=== PATIENT | female | born 1945 | race Caucasian/White ===

== ENCOUNTER 2021-07-25 17:44 | Inpatient (IN) ==
[2021-07-25 17:52] VITALS: BMI 28.3
--- NOTE | 2021-07-25 17:55 | DR.GENAD ---
HPI Time Seen Time Seen by Provider: 07/25/21 17:54 PCP Primary Care Physician: GURMEET SHIRLEY HPI Comment HPI Comment: PATIENT IS 75YR OLD FEMALE IN ER WITH GENERALIZED WEAKNESS AND CHEST PAIN TODAY AT 05:00AM. [facility] FOR SAME. PATIENT HAVE HAD DIARRHEA FOR 2 WEEKS THAT IS NOW RESOLVED. PATIENT IS HAVING DIFFICULTY STANDING UP. DENIES FEVER. HAVE SARCOIDOSIS AND ALWAYS HAVE COUGH. PATIENT IS HAVING 10/10 CHEST PAIN IN PRECORDIAL AREA RADIATING TO THE BACK, PATIENT IS ON ELIQUIS FO A FIB. DENIES TRAUMA. DENIES MELENA. Complaint/Symptoms Chief Complaint Doctors Comments: PRECORDIAL CHEST PAIN AND GENERALIZED WEAKNESS. Chief Complaint:: PT. C/O GENERALIZED WEAKNESS THAT HAS GOTTEN WORSE. PT. HAS HAD A STOMACH VIRUS FOR 2 WEEKS. PT. REPORTS TO ONLY HAVING DIARRHEA WHICH HAS NOW SUBSIDED. PT. C/O CHEST PAIN ESPECIALLY UPON DEEP INSPIRATION. PT. WAS SEEN IN THE [place] ER THIS MORNING FOR SAME C/O. PT. UNABLE TO STAND WITHOUT MAXIMUM ASSISTANCE. COVID-19 Coronavirus risk:travel/contact w/high risk person: No Has patient experienced Coronavirus symptoms: No Nurses notes reviewed Nurses Notes Review: Yes Source History Provided: Patient and Family Member Mode of Arrival Mode of Arrival: Wheelchair Timing Onset of Chief Complaint: 07/11/21 Came on: Suddenly Duration Duration: Constant Duration: Days Severity Severity: Moderate Modifying Factors Worsens:: EXERTION. Improves:: REST. Associated Signs and Symptoms Associated Signs and Symptoms: WEAKNESS. Other History Other History: A FIB, SARCOIDOSIS. PMH PMH Past Medical History: Yes Past Medical History Comment: A-FIB, SARCOIDOSIS Past Surgical History: Yes Surgical History: Cholecystectomy and Other Past Surgical History Comment: FACE LIFT Family History History of Family Medical Conditions: No Social History Does patient currently use any type of tobacco product: No Have you used tobacco products in the last 12 months: No Type of Tobacco Use: None Does any household member use tobacco: No Alcohol Use: None Do you use any recreational Drugs:: No Lives With: Other Lives Where: Home Travel Risk Coronavirus risk:travel/contact w/high risk person: No Has patient experienced Coronavirus symptoms: No Infectious screening In the last 2 months have you had wt loss of >10#?: NO Have you had fever, night sweats or hemotysis?: No Have you traveled outside the country in the last 6 months?: No Isolation: Droplet ROS Review of Systems Constitutional: See HPI, Weakness and Fatigue; negative Fever Eyes: No Symptoms Reported and See HPI ENTM: No Symptoms Reported and See HPI; negative Nose Discharge and Nose Congestion Respiratoy: See HPI, Non-Productive Cough and Short of Breath; negative Wheezing Cardiovascular: No Symptoms Reported, See HPI, Chest Pain and Edema Gastrointestinal/Abdominal: See HPI, Diarrhea and Nausea; negative Abdominal Pain and Vomiting Genitourinary: No Symptoms Reported and See HPI; negative Dysuria and Hematuria Neurological: No Symptoms Reported, See HPI, Headache and Weakness; negative Dizziness Musculoskeletal: See HPI and Back Pain Integumentary: No Symptoms Reported and See HPI; negative Change in Color, Rash and Juandice Hematologic/Lymphatic: No Symptoms Reported, Easy Bleeding and Easy Bruising Endocrine: No Symptoms Reported and See HPI; negative Increased Thirst and Inc reased Urine Psychiatric: No Symptoms Reported and See HPI All Other Systems: Reviewed and Negative PE Vital Signs Vitals: Temperature 98.4 F Pulse Rate 79 Respiratory Rate 20 Blood Pressure 116/56 O2 Sat by Pulse Oximetry 98 General Limitations: No Limitations General Appearance: Alert and In No Apparent Distress Head Head Exam: Normal Inspection Eyes Eye exam: Normal Appearance and PERRL; negative Scleral Icterus and Conjunctival Injection ENT ENT Exam: Normal Exam, Normal Oropharynx, Normal External Ear Exam and TM's Normal Bilaterally External Ear Exam: Normal External Inspection; negative Mastoid Tenderness TM/Canal Exam: Bilateral: Normal Nose Exam: Normal Nose Exam Mouth Exam: Normal Inspection; negative Lip Swelling and Tongue Swelling Throat Exam: Normal Inspection, Tonsillar Erythema and Tonsillomegaly Neck Neck Exam: Normal Inspection and Trachea Midline; negative Tenderness and Lymphadenopathy Chest Chest Inspection: Normal Inspection and Symmetric Chest Wall Rise; negative Tenderness Respiratory Respiratory Exam: Normal Lung Sounds Bilat; negative Accessory Muscle Use, Chest Wall Tenderness and Respiratory Distress Respiratory Exam: Bilateral: Clear to Auscultation Cardiovascular Cardiovascular Exam: Regular Rate, Normal Rhythm and Normal Heart Sounds; negative Systolic Murmur and Diastolic Murmur Abdominal Exam Abdominal Exam: Normal Inspection, Normal Bowel Sounds and Soft; negative Tenderness Extremities Extremities Exam: Normal Inspection, Tenderness and Normal Capillary Refill Back Back Exam: Normal Inspection Neurologic Neurological Exam: Alert and Oriented X3; negative Motor Sensory Deficit Psychiatric Psychiatric Exam: Normal Affect and Normal Mood Skin Skin Exam: Warm, Dry, Intact and Normal Color MDM Additional Information Additional Information Obtained From: Family Differential Diagnosis Differential Diagnosis: PNEUMONIA, [place], GENERALIZED WEAKNESS, UTI, DIARRHEA, DEHYDRATION. COURSE Treatment Treatment: SEE ORDERS. ASA 81MF , 4 TABS CHEWABLE TABS, NS 125MG IVPB, MORPHIN 4MG IV AND ZOFRAN 4MG IV. STILL NAUSEATED AND HAVING 9/10 PAIN. Consultation Consultation Comments: DISCUSSED PATIENT WITH DR. STREET. HE WILL ADMIT PATIENT. Education/Counseling Education/Counseling: Patient and Family Educated On: Diagnosis ROR Labs Reviewed Laboratory Results Reviewed?: Yes Result Diagrams: 07/25/21 16:46 07/25/21 16:46 Laboratory: WBC 10.1 X10^3/uL (3.6-10.0) H 07/25/21 16:46 RBC 4.16 X10^6/uL (3.5-5.4) 07/25/21 16:46 Hgb 11.9 g/dL (12.0-16.0) L 07/25/21 16:46 Hct 34.9 % (36.0-47.0) L 07/25/21 16:46 MCV 83.9 fL (80.0-100.0) 07/25/21 16:46 MCH 28.7 pg (27.0-34.0) 07/25/21 16:46 MCHC 34.2 g/dL (33.0-35.0) 07/25/21 16:46 RDW 15.8 % (11.6-16.5) 07/25/21 16:46 Plt Count 299 X10^3/uL (150.0-450.0) 07/25/21 16:46 MPV 7.9 fL (7.4-11.0) 07/25/21 16:46 Neut % (Auto) 83.2 % (42.0-75.0) H 07/25/21 16:46 Lymph % (Auto) 6.9 % (21.0-51.0) L 07/25/21 16:46 [place] % (Auto) 8.7 % (0.0-13.0) 07/25/21 16:46 Eos % (Auto) 0.0 % (0.9-2.9) L 07/25/21 16:46 Baso % (Auto) 1.2 % (0.2-1.0) H 07/25/21 16:46 Neut # (Auto) 8.4 x10^3/uL (2.2-4.8) H 07/25/21 16:46 Lymph # (Auto) 0.7 X10^3/uL (1.3-2.9) L 07/25/21 16:46 [place] # (Auto) 0.9 x10^3/uL (0.3-0.8) H 07/25/21 16:46 Eos # (Auto) 0.0 x10^3/uL (0.0-0.2) 07/25/21 16:46 Baso # (Auto) 0.1 X10^3/uL (0.0-0.1) 07/25/21 16:46 Absolute Nucleated RBC 0.1 /100WBC 07/25/21 16:46 Sodium 122 mmol/L (136-145) L* 07/25/21 16:46 Corrected Sodium 123 mmol/L (136-145) L 07/25/21 16:46 Potassium 4.4 mmol/L (3.5-5.1) 07/25/21 16:46 Chloride 89 mmol/L (98-107) L 07/25/21 16:46 Carbon Dioxide 25.6 mmol/L (21-32) 07/25/21 16:46 BUN 13 mg/dL (7-18) 07/25/21 16:46 Creatinine 0.96 mg/dL (0.55-1.02) 07/25/21 16:46 Est GFR (MDRD) Af Amer > 60 (>60) 07/25/21 16:46 Est GFR (MDRD) Non-Af 60 (>60) 07/25/21 16:46 Glucose 123 mg/dL (65-99) H 07/25/21 16:46 Calcium 8.9 mg/dL (8.5-10.1) 07/25/21 16:46 Corrected Calcium 9.9 mg/dL (8.5-10.1) 07/25/21 16:46 Total Bilirubin 0.60 mg/dL (0.2-1.0) 07/25/21 16:46 AST 124 Units/L (15-37) H 07/25/21 16:46 ALT 174 Units/L (12-78) H 07/25/21 16:46 Alkaline Phosphatase 166 Units/L (46-116) H 07/25/21 16:46 Creatine Kinase 16 Units/L (26-192) L 07/25/21 22:13 CK-MB (CK-2) < 1.0 ng/mL (0-4.0) 07/25/21 22:13 CK/CKMB % Calc 6.3 % (<4) 07/25/21 22:13 Troponin I < 0.02 ng/mL (0-1.5) 07/25/21 22:13 Total Protein 7.5 g/dL (6.4-8.2) 07/25/21 16:46 Albumin 2.7 g/dL (3.4-5.0) L 07/25/21 16:46 Globulin 4.8 g/dL (2.5-4.5) H 07/25/21 16:46 Albumin/Globulin Ratio 0.6 Ratio (1.1-2.1) L 07/25/21 16:46 Specimen Type Catherized urine 07/25/21 19:10 Urine Color Yellow (YELLOW) 07/25/21 19:10 Urine Appearance Cloudy (CLEAR) 07/25/21 19:10 Urine pH 6.0 (5.0 - 8.0) 07/25/21 19:10 Ur Specific [place] 1.020 (1.000-1.030) 07/25/21 19:10 Urine Protein 2+ (NEGATIVE) 07/25/21 19:10 Urine Glucose (UA) Negative (NEGATIVE) 07/25/21 19:10 Urine Ketones Negative (NEGATIVE) 07/25/21 19:10 Urine Occult Blood 3+ (NEGATIVE) 07/25/21 19:10 Urine Nitrite Negative (NEGATIVE) 07/25/21 19:10 Urine Bilirubin 1+ (NEGATIVE) 07/25/21 19:10 Urine Urobilinogen 1+ (NORMAL) 07/25/21 19:10 Ur Leukocyte Esterase 3+ (NEGATIVE) 07/25/21 19:10 Urine RBC 3-5 /HPF (0-3) A 07/25/21 19:10 Urine WBC Tntc /HPF (0-5) A 07/25/21 19:10 Ur Squamous Epith Cells Numerous /HPF (NEGATIVE) 07/25/21 19:10 Urine Bacteria 3+ /HPF (NEGATIVE) 07/25/21 19:10 Ur Culture Indicated? Yes/culture set up 07/25/21 19:10 SARS-CoV-2 (PCR) Negative (NEGATIVE) 07/25/21 18:29 Influenza Type A (PCR) Negative (NEGATIVE) 07/25/21 18:29 Influenza Type B (PCR) Negative (NEGATIVE) 07/25/21 18:29 RSV (PCR) Negative (NEGATIVE) 07/25/21 18:29 XRAY XRAY Interpreted by: Radiologist (REPORT NOTED AND DISCUSSED [facility] PATIENT AND DAUGHTER.) and Self Opioid Opioid Risk Tool Age (Nas box if 16-45): No History of Preadolescent Sexual Abuse: No Total: 0 Total Score Risk Category: Low Risk Copyright: Josesito GALAN predicting aberrant behaviors Diagnosis Discharge Problem: Acute hyponatremia, Generalized weakness Chest pain Qualifiers: Chest pain type: precordial pain Qualified Code(s): R07.2 - Precordial pain UTI (urinary tract infection) Qualifiers: Urinary tract infection type: site unspecified Hematuria presence: with hematuria Qualified Code(s): N39.0 - Urinary tract infection, site not specified Instructions Forms: Precautions for COVID19 [facility] Social Distancing
[2021-07-25 18:25] LABS: ALANINE AMINOTRANSFERASE 174 Units/L (12-78); ALBUMIN 2.7 g/dL (3.4-5.0); ALKALINE PHOSPHATASE 166 Units/L (46-116); ASPARTATE AMINO TRANSFERASE 124 Units/L (15-37); BLOOD UREA NITROGEN 13 mg/dL (7-18); CALCIUM 8.9 mg/dL (8.5-10.1); CARBON DIOXIDE 25.6 mmol/L (21-32); CHLORIDE 89 mmol/L (98-107); CKMB % 5.3 % (<4); COR CA(FOR HYPOALB) 9.9 mg/dL (8.5-10.1); COR NA(FOR HYPERGLY) 123 mmol/L (136-145); CREATINE KINASE 19 Units/L (26-192); CREATINE KINASE MB < 1.0 ng/mL (0-4.0); CREATININE 0.96 mg/dL (0.55-1.02); TOTAL PROTEIN 7.5 g/dL (6.4-8.2); TROPONIN I < 0.02 ng/mL (0-1.5); eGFR NON BLACK RACES 60 (>60)
[2021-07-25 18:26] LABS: BASOPHILS # (AUTO) 0.1 X10^3/uL (0.0-0.1); BASOPHILS % (AUTO) 1.2 % (0.2-1.0); HEMATOCRIT 34.9 % (36.0-47.0); HEMOGLOBIN 11.9 g/dL (12.0-16.0); LYMPHOCYTES # (AUTO) 0.7 X10^3/uL (1.3-2.9); LYMPHOCYTES % (AUTO) 6.9 % (21.0-51.0); MEAN CORPUSCULAR HEMOGLOBIN 28.7 pg (27.0-34.0); MEAN CORPUSCULAR HGB CONC 34.2 g/dL (33.0-35.0); MEAN CORPUSCULAR VOLUME 83.9 fL (80.0-100.0); MEAN PLATELET VOLUME 7.9 fL (7.4-11.0); MONOCYTES # (AUTO) 0.9 x10^3/uL (0.3-0.8); MONOCYTES % (AUTO) 8.7 % (0.0-13.0); NEUTROPHILS # (AUTO) 8.4 x10^3/uL (2.2-4.8); NEUTROPHILS % (AUTO) 83.2 % (42.0-75.0); PLATELET COUNT 299 X10^3/uL (150.0-450.0); RED BLOOD COUNT 4.16 X10^6/uL (3.5-5.4); RED CELL DISTRIBUTION WIDTH 15.8 % (11.6-16.5); SODIUM 122 mmol/L (136-145); WHITE BLOOD COUNT 10.1 X10^3/uL (3.6-10.0)
[2021-07-25 19:22] LABS: BILIRUBIN,URINE 1+ (NEGATIVE); BLOOD/HEMOGLOBIN,URINE 3+ (NEGATIVE); GLUCOSE, URINE NEGATIVE (NEGATIVE); KETONES,URINE NEGATIVE (NEGATIVE); LEUKOCYTE ESTERASE ,URINE 3+ (NEGATIVE); NITRITES,URINE NEGATIVE (NEGATIVE); PROTEIN,URINE 2+ (NEGATIVE); UROBILINOGEN,URINE 1+ (NORMAL)
[2021-07-25 19:33] LABS: APPEARANCE,URINE CLOUDY (CLEAR); COLOR,URINE YELLOW (YELLOW)
[2021-07-25 19:34] LABS: BACTERIA,URINE 3+ /HPF (NEGATIVE); SQUAMOUS EPITHELIAL CELL,UR NUMEROUS /HPF (NEGATIVE)
[2021-07-25] MEDS ORDERED: ZOFRAN INJ 4 MG VIAL IVP ONE ×2 (19:40→21:02)
[2021-07-25] MEDS ORDERED: MORPHINE SULFATE INJ 4 MG IVP ONE (19:40)
[2021-07-25] MEDS ORDERED: ASPIRIN 81 MG CHEWTAB PO ONE (19:41)
[2021-07-25] MEDS ORDERED: MORPHINE SULFATE INJ 4 MG ONE (20:28)
[2021-07-25] MEDS ORDERED: ASPIRIN 81 MG CHEWTAB ONE (20:28)
[2021-07-25] MEDS ORDERED: ZOFRAN INJ 4 MG VIAL ONE ×2 (20:29→21:08)
--- NOTE | 2021-07-25 20:39 | RAD ---
HISTORYPT. C/O GENERALIZED WEAKNESS THAT HAS GOTTEN WORSE. PT C/O CHEST PAINSTUDYCHEST, 1 VIEWCOMPARISONSeptember 2020 at 8:17 a.m.TECHNIQUEChest radiographic imaging, AP portable projection, 1 imageFINDINGSNo cardiomegaly.Bilateral peripheral hazy airspace opacities; left greater than right.Mild diffuse increased interstitial markings.Peribronchial cuffing in the hilar regions.No focal consolidation.No effusion.No pneumothorax.No acute osseous abnormality.IMPRESSIONFindings could represent the sequela of an atypical/viral infectious process. Chronic interstitial changes related to the patient's sarcoidosis or also a consideration. No focal consolidation. No significant interval changes.Electronically signed by: Blayne Durand (Jul 25, 2021 20:37:41)
[2021-07-25] MEDS ORDERED: DILAUDID INJ IVP ONE (21:02)
[2021-07-25] MEDS ORDERED: DILAUDID INJ ONE (21:08)
[2021-07-25 22:43] LABS: CKMB % 6.3 % (<4); CREATINE KINASE 16 Units/L (26-192); CREATINE KINASE MB < 1.0 ng/mL (0-4.0); TROPONIN I < 0.02 ng/mL (0-1.5)
[2021-07-25] MEDS ORDERED: NS 1000 ML 1,000 ML ONE (23:01)
[2021-07-25] MEDS: NS 1000 ML 1,000 ML IV SCH (23:07)
[2021-07-26] MEDS ORDERED: MORPHINE SULFATE INJ 2 MG INJ ONE (02:08)
[2021-07-26] MEDS ORDERED: MIRALAX POWDER (255 GRAMS BTL) PO PRN (02:12)
[2021-07-26] MEDS: MORPHINE SULFATE INJ 2 MG INJ IVP PRN ×4 (02:12→20:57)
[2021-07-26] MEDS ORDERED: ROCEPHIN 1 GRAM IV PREMIX 1 G/50 ML IV.SOLN. IV SCH (04:13)
[2021-07-26] MEDS: REQUIP PO SCH ×3 (05:20→21:20)
[2021-07-26] MEDS: ROCEPHIN 1 GRAM IV PREMIX 1 G/50 ML IV.SOLN. IV SCH (05:20)
[2021-07-26] MEDS: MYSOLINE TAB 250 MG PO SCH ×3 (05:33→21:19)
[2021-07-26 07:36] LABS: BASOPHILS % (AUTO) 0.4 % (0.2-1.0); EOSINOPHILS % (AUTO) 0.3 % (0.9-2.9); HEMATOCRIT 32.5 % (36.0-47.0); LYMPHOCYTES # (AUTO) 0.7 X10^3/uL (1.3-2.9); LYMPHOCYTES % (AUTO) 9.4 % (21.0-51.0); MEAN CORPUSCULAR HEMOGLOBIN 28.9 pg (27.0-34.0); MEAN CORPUSCULAR HGB CONC 33.9 g/dL (33.0-35.0); MEAN CORPUSCULAR VOLUME 85.2 fL (80.0-100.0); MEAN PLATELET VOLUME 7.9 fL (7.4-11.0); MONOCYTES # (AUTO) 0.8 x10^3/uL (0.3-0.8); MONOCYTES % (AUTO) 11.7 % (0.0-13.0); NEUTROPHILS # (AUTO) 5.5 x10^3/uL (2.2-4.8); NEUTROPHILS % (AUTO) 78.2 % (42.0-75.0); PLATELET COUNT 257 X10^3/uL (150.0-450.0); RED BLOOD COUNT 3.81 X10^6/uL (3.5-5.4); RED CELL DISTRIBUTION WIDTH 15.6 % (11.6-16.5)
[2021-07-26 08:08] LABS: ALANINE AMINOTRANSFERASE 249 Units/L (12-78); ALBUMIN 2.3 g/dL (3.4-5.0); ALKALINE PHOSPHATASE 288 Units/L (46-116); ASPARTATE AMINO TRANSFERASE 211 Units/L (15-37); BLOOD UREA NITROGEN 10 mg/dL (7-18); CALCIUM 8.6 mg/dL (8.5-10.1); CARBON DIOXIDE 27.1 mmol/L (21-32); CHLORIDE 93 mmol/L (98-107); COR NA(FOR HYPERGLY) 125 mmol/L (136-145); CREATINE KINASE 25 Units/L (26-192); CREATINE KINASE MB < 1.0 ng/mL (0-4.0); CREATININE 0.66 mg/dL (0.55-1.02); MAGNESIUM 1.8 mg/dL (1.7-2.9); TOTAL PROTEIN 6.8 g/dL (6.4-8.2); TROPONIN I < 0.02 ng/mL (0-1.5); eGFR NON BLACK RACES > 60 (>60)
[2021-07-26 08:17] LABS: SODIUM 125 mmol/L (136-145)
[2021-07-26] MEDS: NS 1000 ML 1,000 ML IV SCH ×3 (08:32→16:26)
[2021-07-26] MEDS: CORDARONE TAB 200 MG PO SCH (08:32)
[2021-07-26] MEDS: XANAX PO SCH ×2 (08:33→20:39)
[2021-07-26] MEDS: PROTONIX TAB 40 MG PO SCH (08:33)
[2021-07-26] MEDS: ELIQUIS PO SCH ×2 (08:33→20:38)
[2021-07-26] MEDS: PROzac PO SCH (08:33)
[2021-07-26] MEDS ORDERED: SENNA PO SCH (09:00)
[2021-07-26] MEDS ORDERED: [UNRECOGNIZED DRUG - OTHER] PO SCH (09:00)
[2021-07-26] MEDS ORDERED: PATIENT'S HOME MEDICATION (Multivitamin Tablet) PO SCH (09:00)
[2021-07-26] MEDS ORDERED: PROzac PO SCH (09:00)
[2021-07-26] MEDS: ACTOS PO SCH (09:13)
[2021-07-26] MEDS: TAB-A-VITE PO SCH (09:14)
[2021-07-26] MEDS: VITAMIN D3 125 mcg (5,000 UNITS) PO SCH (11:57)
[2021-07-26] MEDS: ESTRACE PO SCH (11:57)
[2021-07-26] MEDS: MICRO K EXTEN CAP 10 MEQ PO SCH (11:57)
[2021-07-26] MEDS ORDERED: LASIX PO SCH (12:00)
[2021-07-26] MEDS ORDERED: ESTRADIOL 0.5 MG PO SCH (12:00)
[2021-07-26 12:04] LABS: CREATINE KINASE 20 Units/L (26-192); CREATINE KINASE MB < 1.0 ng/mL (0-4.0); TROPONIN I < 0.02 ng/mL (0-1.5)
[2021-07-26 13:09] LABS: BILIRUBIN,URINE NEGATIVE (NEGATIVE); BLOOD/HEMOGLOBIN,URINE 4+ (NEGATIVE); GLUCOSE, URINE NEGATIVE (NEGATIVE); KETONES,URINE NEGATIVE (NEGATIVE); LEUKOCYTE ESTERASE ,URINE 3+ (NEGATIVE); NITRITES,URINE NEGATIVE (NEGATIVE); PH,URINE 6.5 (5.0 - 8.0); PROTEIN,URINE 1+ (NEGATIVE); UROBILINOGEN,URINE NORMAL (NORMAL)
[2021-07-26] MEDS: ZOFRAN INJ 4 MG VIAL IVP PRN (13:14)
[2021-07-26 13:24] LABS: APPEARANCE,URINE CLEAR (CLEAR); COLOR,URINE YELLOW (YELLOW)
[2021-07-26 13:25] LABS: BACTERIA,URINE TRACE /HPF (NEGATIVE); SQUAMOUS EPITHELIAL CELL,UR FEW /HPF (NEGATIVE)
--- NOTE | 2021-07-26 14:27 | US ---
HISTORYELEV TRANSAMINASESAbdominal pain and abnormal LFTs.Exams: Diagnostic ultrasound exam of the liver.Technique: GRAYSCALE & DOPPLER IMAGES OF THE LIVER PERFORMED.COMPARISON: None available.Findings:The liver is normal in size and heterogeneously echogenic in echotecture. The liver measures 16 cm in greatest cross-sectional dimension. [No dominant or hypoechoic liver mass lesions are appreciated]. The gallbladder is surgically absent. [No pathologic intrahepatic biliary duct dilatation is seen]. The common bile duct measures within normal limits for age at 2 mm. There is no surrounding ascites observed.Impression:Liver is normal in size & heterogeneously echogenic/fatty in echotecture.No dominant liver mass lesions or biliary duct dilatation seen.Status post cholecystectomy. No other abnormalities appreciated.Electronically signed by: CRISTINA MCLAUGHLIN III (Jul 26, 2021 14:25:46)
[2021-07-26] MEDS ORDERED: CARDIZEM CD 120 MG 24-HR PO ONE ×2 (20:24→21:00)
[2021-07-26] MEDS: LIPITOR TAB 20 MG PO SCH (20:39)
[2021-07-26] MEDS: MELATONIN PO SCH (20:55)
[2021-07-26] MEDS: DIOVAN TAB 80 MG PO SCH (20:55)
[2021-07-26] MEDS ORDERED: PATIENT'S HOME MEDICATION (Melatonin 10 mg Tablet) PO SCH (21:00)
[2021-07-26] MEDS ORDERED: HYDROCHLOROTHIAZIDE 12.5 MG CAP PO SCH (21:00)
[2021-07-26] MEDS ORDERED: CARDIZEM CD 120 MG 24-HR PO SCH (21:00)
[2021-07-26] MEDS ORDERED: VALSARTAN HYDROCHLOROTHIAZIDE PO SCH (21:00)
[2021-07-26] MEDS ORDERED: CARDIZEM CD 180 MG 24-HR PO SCH (21:00)
[2021-07-26] MEDS ORDERED: DILTIAZEM HCL 180 MG PO SCH (21:00)
[2021-07-27] MEDS: NS 1000 ML 1,000 ML IV SCH ×4 (00:46→16:55)
[2021-07-27] MEDS: MYSOLINE TAB 250 MG PO SCH ×3 (05:38→21:11)
[2021-07-27] MEDS: REQUIP PO SCH ×3 (05:39→21:11)
[2021-07-27 06:48] LABS: BASOPHILS % (AUTO) 0.3 % (0.2-1.0); EOSINOPHILS # (AUTO) 0.1 x10^3/uL (0.0-0.2); EOSINOPHILS % (AUTO) 0.9 % (0.9-2.9); HEMATOCRIT 29.8 % (36.0-47.0); HEMOGLOBIN 10.1 g/dL (12.0-16.0); LYMPHOCYTES # (AUTO) 0.7 X10^3/uL (1.3-2.9); LYMPHOCYTES % (AUTO) 11.7 % (21.0-51.0); MEAN CORPUSCULAR HEMOGLOBIN 28.9 pg (27.0-34.0); MEAN CORPUSCULAR HGB CONC 33.8 g/dL (33.0-35.0); MEAN CORPUSCULAR VOLUME 85.5 fL (80.0-100.0); MEAN PLATELET VOLUME 8.2 fL (7.4-11.0); MONOCYTES # (AUTO) 0.6 x10^3/uL (0.3-0.8); MONOCYTES % (AUTO) 11.6 % (0.0-13.0); NEUTROPHILS # (AUTO) 4.2 x10^3/uL (2.2-4.8); NEUTROPHILS % (AUTO) 75.5 % (42.0-75.0); PLATELET COUNT 257 X10^3/uL (150.0-450.0); RED BLOOD COUNT 3.49 X10^6/uL (3.5-5.4); RED CELL DISTRIBUTION WIDTH 15.8 % (11.6-16.5); WHITE BLOOD COUNT 5.6 X10^3/uL (3.6-10.0)
[2021-07-27 07:01] LABS: HEMOGLOBIN A1C 5.1 %
[2021-07-27 07:09] LABS: ALANINE AMINOTRANSFERASE 248 Units/L (12-78); ALBUMIN 2.1 g/dL (3.4-5.0); ALKALINE PHOSPHATASE 229 Units/L (46-116); ASPARTATE AMINO TRANSFERASE 200 Units/L (15-37); BLOOD UREA NITROGEN 9 mg/dL (7-18); CALCIUM 8.3 mg/dL (8.5-10.1); CARBON DIOXIDE 25.8 mmol/L (21-32); CHLORIDE 100 mmol/L (98-107); CHOLESTEROL 164 mg/dL (0-200); COR CA(FOR HYPOALB) 9.8 mg/dL (8.5-10.1); CREATININE 0.71 mg/dL (0.55-1.02); HDL CHOLESTEROL 81 mg/dL (40-60); MAGNESIUM 1.9 mg/dL (1.7-2.9); SODIUM 131 mmol/L (136-145); TOTAL PROTEIN 6.3 g/dL (6.4-8.2); TRIGLYCERIDES 51 mg/dL (0-150); eGFR NON BLACK RACES > 60 (>60)
[2021-07-27] MEDS: PROzac PO SCH (08:54)
[2021-07-27] MEDS: ROCEPHIN 1 GRAM IV PREMIX 1 G/50 ML IV.SOLN. IV SCH (08:54)
[2021-07-27] MEDS: ACTOS PO SCH (08:54)
[2021-07-27] MEDS: ELIQUIS PO SCH ×2 (08:54→20:30)
[2021-07-27] MEDS: PROTONIX TAB 40 MG PO SCH (08:54)
[2021-07-27] MEDS: CORDARONE TAB 200 MG PO SCH (08:54)
[2021-07-27] MEDS: XANAX PO SCH ×2 (08:55→20:30)
[2021-07-27] MEDS: TAB-A-VITE PO SCH (08:55)
[2021-07-27] MEDS ORDERED: CARDIZEM CD 120 MG 24-HR PO SCH (09:00)
[2021-07-27] MEDS: MORPHINE SULFATE INJ 2 MG INJ IVP PRN ×3 (09:04→21:13)
[2021-07-27] MEDS: MICRO K EXTEN CAP 10 MEQ PO SCH (11:34)
[2021-07-27] MEDS: VITAMIN D3 125 mcg (5,000 UNITS) PO SCH (11:34)
[2021-07-27] MEDS: ESTRACE PO SCH (11:34)
[2021-07-27] MEDS: MELATONIN PO SCH (20:29)
[2021-07-27] MEDS: LIPITOR TAB 20 MG PO SCH (20:30)
[2021-07-27] MEDS: DIOVAN TAB 80 MG PO SCH (20:30)
[2021-07-27] MEDS ORDERED: COLACE CAP 100 MG PO PRN (22:00)
[2021-07-27] MEDS: CARDIZEM CD 180 MG 24-HR PO SCH (22:00)
[2021-07-27] MEDS ORDERED: COLACE CAP 100 MG PO ONE (23:00)
[2021-07-28] MEDS: NS 1000 ML 1,000 ML IV SCH ×4 (00:07→21:10)
[2021-07-28] MEDS: MORPHINE SULFATE INJ 2 MG INJ IVP PRN ×5 (00:50→21:10)
[2021-07-28] MEDS ORDERED: MORPHINE SULFATE INJ 2 MG INJ ONE ×2 (05:19→13:20)
[2021-07-28] MEDS: MYSOLINE TAB 250 MG PO SCH ×3 (05:44→22:05)
[2021-07-28] MEDS: REQUIP PO SCH ×3 (05:44→22:05)
[2021-07-28 06:15] LABS: BASOPHILS % (AUTO) 0.6 % (0.2-1.0); EOSINOPHILS # (AUTO) 0.1 x10^3/uL (0.0-0.2); EOSINOPHILS % (AUTO) 1.8 % (0.9-2.9); HEMATOCRIT 28.3 % (36.0-47.0); HEMOGLOBIN 9.6 g/dL (12.0-16.0); LYMPHOCYTES # (AUTO) 0.7 X10^3/uL (1.3-2.9); LYMPHOCYTES % (AUTO) 12.8 % (21.0-51.0); MEAN CORPUSCULAR HEMOGLOBIN 28.7 pg (27.0-34.0); MEAN CORPUSCULAR HGB CONC 33.8 g/dL (33.0-35.0); MEAN CORPUSCULAR VOLUME 84.9 fL (80.0-100.0); MONOCYTES # (AUTO) 0.6 x10^3/uL (0.3-0.8); MONOCYTES % (AUTO) 11.2 % (0.0-13.0); NEUTROPHILS # (AUTO) 4.3 x10^3/uL (2.2-4.8); NEUTROPHILS % (AUTO) 73.6 % (42.0-75.0); PLATELET COUNT 247 X10^3/uL (150.0-450.0); RED BLOOD COUNT 3.33 X10^6/uL (3.5-5.4); RED CELL DISTRIBUTION WIDTH 15.6 % (11.6-16.5); WHITE BLOOD COUNT 5.8 X10^3/uL (3.6-10.0)
[2021-07-28 06:43] LABS: ALANINE AMINOTRANSFERASE 192 Units/L (12-78); ALBUMIN 1.9 g/dL (3.4-5.0); ALKALINE PHOSPHATASE 187 Units/L (46-116); ASPARTATE AMINO TRANSFERASE 142 Units/L (15-37); BLOOD UREA NITROGEN 6 mg/dL (7-18); CALCIUM 8.1 mg/dL (8.5-10.1); CARBON DIOXIDE 25.1 mmol/L (21-32); CHLORIDE 100 mmol/L (98-107); COR CA(FOR HYPOALB) 9.8 mg/dL (8.5-10.1); CREATININE 0.59 mg/dL (0.55-1.02); SODIUM 133 mmol/L (136-145); TOTAL PROTEIN 5.7 g/dL (6.4-8.2); eGFR NON BLACK RACES > 60 (>60)
[2021-07-28] MEDS: ELIQUIS PO SCH ×2 (08:38→21:55)
[2021-07-28] MEDS: PROTONIX TAB 40 MG PO SCH (08:39)
[2021-07-28] MEDS: ROCEPHIN 1 GRAM IV PREMIX 1 G/50 ML IV.SOLN. IV SCH (08:39)
[2021-07-28] MEDS: TAB-A-VITE PO SCH (08:39)
[2021-07-28] MEDS: PROzac PO SCH (08:39)
[2021-07-28] MEDS: XANAX PO SCH ×2 (08:39→21:55)
[2021-07-28] MEDS: CORDARONE TAB 200 MG PO SCH (08:41)
[2021-07-28] MEDS ORDERED: TYGACIL 50 MG VIAL 100 MG in NS 100 ML IV 100 ML IV ONE (09:41)
[2021-07-28] MEDS ORDERED: TYGACIL 50 MG VIAL 50 MG in NS 100 ML IV 100 ML IV SCH (11:00)
[2021-07-28] MEDS ORDERED: NS 100 ML IV 100 ML ONE (11:05)
[2021-07-28] MEDS: ACTOS PO SCH (11:39)
[2021-07-28] MEDS: MICRO K EXTEN CAP 10 MEQ PO SCH (11:39)
[2021-07-28] MEDS: ESTRACE PO SCH (11:39)
[2021-07-28] MEDS: VITAMIN D3 125 mcg (5,000 UNITS) PO SCH (11:40)
[2021-07-28] MEDS ORDERED: TYGACIL 50 MG VIAL 100 MG in NS 100 ML IV 100 ML IV NR (12:00)
[2021-07-28] MEDS ORDERED: XANAX PO ONE (15:55)
[2021-07-28] MEDS: ZOFRAN INJ 4 MG VIAL IVP PRN (18:32)
[2021-07-28] MEDS: LIPITOR TAB 20 MG PO SCH (21:55)
[2021-07-28] MEDS: TYGACIL 50 MG VIAL 50 MG in NS 100 ML IV 100 ML IV SCH (21:55)
[2021-07-28] MEDS: MELATONIN PO SCH (21:55)
[2021-07-28] MEDS: DIOVAN TAB 80 MG PO SCH (21:55)
[2021-07-28] MEDS: CARDIZEM CD 180 MG 24-HR PO SCH (21:55)
[2021-07-29] MEDS: MORPHINE SULFATE INJ 2 MG INJ IVP PRN ×3 (03:45→21:01)
[2021-07-29] MEDS: NS 1000 ML 1,000 ML IV SCH ×3 (03:54→18:28)
[2021-07-29] MEDS: MYSOLINE TAB 250 MG PO SCH ×3 (05:45→20:59)
[2021-07-29] MEDS: REQUIP PO SCH ×3 (05:45→20:59)
[2021-07-29 06:14] LABS: BASOPHILS % (AUTO) 0.5 % (0.2-1.0); EOSINOPHILS % (AUTO) 0.8 % (0.9-2.9); HEMOGLOBIN 10.2 g/dL (12.0-16.0); LYMPHOCYTES # (AUTO) 0.8 X10^3/uL (1.3-2.9); LYMPHOCYTES % (AUTO) 12.2 % (21.0-51.0); MEAN CORPUSCULAR HEMOGLOBIN 28.7 pg (27.0-34.0); MEAN CORPUSCULAR VOLUME 84.4 fL (80.0-100.0); MONOCYTES # (AUTO) 0.6 x10^3/uL (0.3-0.8); MONOCYTES % (AUTO) 9.1 % (0.0-13.0); NEUTROPHILS # (AUTO) 4.9 x10^3/uL (2.2-4.8); NEUTROPHILS % (AUTO) 77.4 % (42.0-75.0); PLATELET COUNT 259 X10^3/uL (150.0-450.0); RED BLOOD COUNT 3.55 X10^6/uL (3.5-5.4); RED CELL DISTRIBUTION WIDTH 15.3 % (11.6-16.5); WHITE BLOOD COUNT 6.4 X10^3/uL (3.6-10.0)
[2021-07-29 06:32] LABS: ALANINE AMINOTRANSFERASE 235 Units/L (12-78); ALBUMIN 1.8 g/dL (3.4-5.0); ALKALINE PHOSPHATASE 173 Units/L (46-116); ASPARTATE AMINO TRANSFERASE 182 Units/L (15-37); BLOOD UREA NITROGEN 13 mg/dL (7-18); CARBON DIOXIDE 28.3 mmol/L (21-32); CHLORIDE 99 mmol/L (98-107); COR CA(FOR HYPOALB) 9.8 mg/dL (8.5-10.1); CREATININE 0.65 mg/dL (0.55-1.02); SODIUM 133 mmol/L (136-145); TOTAL PROTEIN 5.7 g/dL (6.4-8.2); eGFR NON BLACK RACES > 60 (>60)
[2021-07-29] MEDS ORDERED: SODIUM CHL HYPERTONIC 3% IV ONE (09:00)
[2021-07-29] MEDS: ELIQUIS PO SCH ×2 (10:01→21:00)
[2021-07-29] MEDS: ACTOS PO SCH (10:02)
[2021-07-29] MEDS: XANAX PO SCH ×2 (10:02→21:01)
[2021-07-29] MEDS: CORDARONE TAB 200 MG PO SCH (10:03)
[2021-07-29] MEDS: TYGACIL 50 MG VIAL 50 MG in NS 100 ML IV 100 ML IV SCH ×2 (10:04→21:01)
[2021-07-29] MEDS: PROTONIX TAB 40 MG PO SCH (10:04)
[2021-07-29] MEDS: TAB-A-VITE PO SCH (10:04)
[2021-07-29] MEDS: PROzac PO SCH (10:09)
[2021-07-29 12:46] LABS: BLOOD UREA NITROGEN 13 mg/dL (7-18); CARBON DIOXIDE 26.7 mmol/L (21-32); CHLORIDE 98 mmol/L (98-107); COR NA(FOR HYPERGLY) 133 mmol/L (136-145); CREATININE 0.58 mg/dL (0.55-1.02); SODIUM 133 mmol/L (136-145); eGFR NON BLACK RACES > 60 (>60)
[2021-07-29] MEDS: MICRO K EXTEN CAP 10 MEQ PO SCH (14:09)
[2021-07-29] MEDS: VITAMIN D3 125 mcg (5,000 UNITS) PO SCH (14:09)
[2021-07-29] MEDS: ESTRACE PO SCH (14:10)
[2021-07-29] MEDS ORDERED: SODIUM CHL HYPERTONIC 3% IV NR (15:00)
[2021-07-29 16:58] LABS: BLOOD UREA NITROGEN 14 mg/dL (7-18); CARBON DIOXIDE 31.7 mmol/L (21-32); CHLORIDE 99 mmol/L (98-107); CREATININE 0.74 mg/dL (0.55-1.02); SODIUM 133 mmol/L (136-145); eGFR NON BLACK RACES > 60 (>60)
[2021-07-29] MEDS ORDERED: SODIUM CHL HYPERTONIC ** 3% ** 500 ML IV NR (20:00)
[2021-07-29] MEDS: LIPITOR TAB 20 MG PO SCH (20:58)
[2021-07-29] MEDS: MELATONIN PO SCH (20:58)
[2021-07-29] MEDS: CARDIZEM CD 180 MG 24-HR PO SCH (21:00)
[2021-07-29] MEDS: DIOVAN TAB 80 MG PO SCH (21:00)
[2021-07-30] MEDS: MYSOLINE TAB 250 MG PO SCH ×3 (05:28→21:30)
[2021-07-30] MEDS: REQUIP PO SCH ×3 (05:29→21:30)
[2021-07-30] MEDS: NS 1000 ML 1,000 ML IV SCH ×3 (06:45→22:00)
[2021-07-30 06:48] LABS: BASOPHILS % (AUTO) 0.6 % (0.2-1.0); EOSINOPHILS # (AUTO) 0.1 x10^3/uL (0.0-0.2); EOSINOPHILS % (AUTO) 2.2 % (0.9-2.9); HEMOGLOBIN 10.6 g/dL (12.0-16.0); LYMPHOCYTES # (AUTO) 0.8 X10^3/uL (1.3-2.9); MEAN CORPUSCULAR HEMOGLOBIN 28.7 pg (27.0-34.0); MEAN CORPUSCULAR HGB CONC 34.2 g/dL (33.0-35.0); MEAN CORPUSCULAR VOLUME 83.9 fL (80.0-100.0); MEAN PLATELET VOLUME 7.9 fL (7.4-11.0); MONOCYTES # (AUTO) 0.6 x10^3/uL (0.3-0.8); NEUTROPHILS # (AUTO) 4.7 x10^3/uL (2.2-4.8); NEUTROPHILS % (AUTO) 74.2 % (42.0-75.0); PLATELET COUNT 264 X10^3/uL (150.0-450.0); RED CELL DISTRIBUTION WIDTH 15.6 % (11.6-16.5); WHITE BLOOD COUNT 6.3 X10^3/uL (3.6-10.0)
[2021-07-30 06:57] LABS: ALANINE AMINOTRANSFERASE 293 Units/L (12-78); ALKALINE PHOSPHATASE 170 Units/L (46-116); ASPARTATE AMINO TRANSFERASE 216 Units/L (15-37); BLOOD UREA NITROGEN 13 mg/dL (7-18); CALCIUM 8.2 mg/dL (8.5-10.1); CARBON DIOXIDE 28.1 mmol/L (21-32); CHLORIDE 99 mmol/L (98-107); COR CA(FOR HYPOALB) 9.8 mg/dL (8.5-10.1); CREATININE 0.64 mg/dL (0.55-1.02); SODIUM 132 mmol/L (136-145); TOTAL PROTEIN 5.8 g/dL (6.4-8.2); eGFR NON BLACK RACES > 60 (>60)
[2021-07-30] MEDS ORDERED: PROzac PO SCH (09:01)
[2021-07-30] MEDS: ACTOS PO SCH (09:11)
[2021-07-30] MEDS: ELIQUIS PO SCH ×2 (09:11→20:36)
[2021-07-30] MEDS: XANAX PO SCH ×2 (09:12→20:36)
[2021-07-30] MEDS: TAB-A-VITE PO SCH (09:12)
[2021-07-30] MEDS: TYGACIL 50 MG VIAL 50 MG in NS 100 ML IV 100 ML IV SCH ×2 (09:12→20:36)
[2021-07-30] MEDS: CORDARONE TAB 200 MG PO SCH (09:13)
[2021-07-30] MEDS: PROTONIX TAB 40 MG PO SCH (10:02)
[2021-07-30] MEDS: SODIUM CHL HYPERTONIC 3% IV SCH ×5 (10:30→22:15)
[2021-07-30] MEDS: ESTRACE PO SCH (13:13)
[2021-07-30] MEDS: VITAMIN D3 125 mcg (5,000 UNITS) PO SCH (13:14)
[2021-07-30] MEDS: MICRO K EXTEN CAP 10 MEQ PO SCH (13:14)
[2021-07-30] MEDS: MORPHINE SULFATE INJ 2 MG INJ IVP PRN (20:05)
[2021-07-30] MEDS: DIOVAN TAB 80 MG PO SCH (20:35)
[2021-07-30] MEDS: CARDIZEM CD 180 MG 24-HR PO SCH (20:35)
[2021-07-30] MEDS: LIPITOR TAB 20 MG PO SCH (20:36)
[2021-07-30] MEDS: MELATONIN PO SCH (20:36)
[2021-07-31] MEDS: SODIUM CHL HYPERTONIC 3% IV SCH ×3 (00:05→19:17)
[2021-07-31] MEDS: MORPHINE SULFATE INJ 2 MG INJ IVP PRN ×4 (00:40→21:12)
[2021-07-31] MEDS: MYSOLINE TAB 250 MG PO SCH ×3 (05:02→21:08)
[2021-07-31] MEDS: REQUIP PO SCH ×3 (05:02→21:08)
[2021-07-31 06:10] LABS: EOSINOPHILS # (AUTO) 0.1 x10^3/uL (0.0-0.2); EOSINOPHILS % (AUTO) 2.6 % (0.9-2.9); HEMATOCRIT 29.5 % (36.0-47.0); HEMOGLOBIN 10.1 g/dL (12.0-16.0); LYMPHOCYTES # (AUTO) 0.7 X10^3/uL (1.3-2.9); LYMPHOCYTES % (AUTO) 15.7 % (21.0-51.0); MEAN CORPUSCULAR HEMOGLOBIN 28.7 pg (27.0-34.0); MEAN CORPUSCULAR HGB CONC 34.2 g/dL (33.0-35.0); MEAN CORPUSCULAR VOLUME 84.1 fL (80.0-100.0); MEAN PLATELET VOLUME 8.2 fL (7.4-11.0); MONOCYTES # (AUTO) 0.6 x10^3/uL (0.3-0.8); NEUTROPHILS # (AUTO) 3.2 x10^3/uL (2.2-4.8); NEUTROPHILS % (AUTO) 67.7 % (42.0-75.0); PLATELET COUNT 246 X10^3/uL (150.0-450.0); RED CELL DISTRIBUTION WIDTH 15.6 % (11.6-16.5); WHITE BLOOD COUNT 4.7 X10^3/uL (3.6-10.0)
[2021-07-31 06:26] LABS: ALANINE AMINOTRANSFERASE 229 Units/L (12-78); ALBUMIN 1.8 g/dL (3.4-5.0); ALKALINE PHOSPHATASE 147 Units/L (46-116); ASPARTATE AMINO TRANSFERASE 165 Units/L (15-37); BLOOD UREA NITROGEN 12 mg/dL (7-18); CALCIUM 7.7 mg/dL (8.5-10.1); CARBON DIOXIDE 25.2 mmol/L (21-32); CHLORIDE 102 mmol/L (98-107); COR CA(FOR HYPOALB) 9.5 mg/dL (8.5-10.1); CREATININE 0.54 mg/dL (0.55-1.02); SODIUM 133 mmol/L (136-145); TOTAL PROTEIN 5.3 g/dL (6.4-8.2); eGFR NON BLACK RACES > 60 (>60)
[2021-07-31] MEDS: ACTOS PO SCH (08:26)
[2021-07-31] MEDS: CORDARONE TAB 200 MG PO SCH (08:27)
[2021-07-31] MEDS: ELIQUIS PO SCH ×2 (08:27→21:07)
[2021-07-31] MEDS: TAB-A-VITE PO SCH (08:28)
[2021-07-31] MEDS: XANAX PO SCH ×2 (08:30→21:06)
[2021-07-31] MEDS: PROTONIX TAB 40 MG PO SCH (08:30)
[2021-07-31] MEDS: TYGACIL 50 MG VIAL 50 MG in NS 100 ML IV 100 ML IV SCH ×2 (08:31→21:05)
[2021-07-31] MEDS: THERMOTABS PO SCH ×2 (10:50→21:06)
--- NOTE | 2021-07-31 15:41 | PCM.PROG ---
Progress Note - Progress Note for Day of Date of Exam: 07/31/21 - Subjective Subjective: IS A 75 YEAR OLD PATIENT OF . SHE WAS ADMITTED ON 07/25/21 FOR TREATMENT OF HYPERNATREMIA, UTI, AND GENERALIZED WEAKNESS. ON ADMISSION, HER SODIUM WAS 122. SHE HAS BEEN RECEIVING 3% HYPERTONIC SALINE FOR THE PAST TWO DAYS. SODIUM HAS REMAINED 132-135. TODAY, SHE IS ALERT AND ORIENTED, LYING IN BED ON MORNING ROUNDS. SHE CONTINUES WITH COMPLAINTS OF GENERALIZED WEAKNESS TODAY. ON EXAMINATION, HEART IS REGULAR IN RATE AND RHYTHM. BILATERAL LUNGS NOTED TO HAVE DIMINISHED LUNG SOUNDS THROUGHOUT. ABDOMEN IS ROUND, SOFT, AND NON-TENDER WITH NORMAL BOWEL SOUNDS NOTED IN ALL QUADRANTS. HER VITALS THIS MORNING ARE: 98.1-72-20-96%-165/70. LABS WERE OBTAINED. ABNORMAL LAB VALUES INCLUDE THE FOLLOWING: HGB 10.1, HCT 29.5, SODIUM 132, GLUCOSE 108, CALCIUM 8.2, AST 216, ALT 293, ALK PHOS 170, TOTAL PROTEIN 5.8, ALBUMIN 2.0. URINE CULTURES REVEAL GROWTH OF E.COLI AND KLEBSIELLA PNEUMONIAE. SHE IS CURRENTLY RECEIVING NORMAL SALINE AT 125 ML/HR, HYPERTONIC SALINE Q4H, TIGECYCLI NE 50MG IV BID, ZOFRAN 4MG IV Q6H PRN, AN HER HOME MEDS RESUMED. TODAY, WE WILL DISCONTINUE THE HYPERTONIC SALINE, HOLD THE PROZAC THAT SHE IS RECEIVING, AND ADD THERMOTABS 1 TAB PO BID. OTHERWISE, WE WILL CONTINUE WITH CURRENT PLAN OF CARE TODAY. WE PLAN TO FOLLOW UP WITH AM LABS AND CONTINUE TO MONITOR. TIME SPENT ON CLINICAL ASSESSMENT, REVIEWING LABS AND IMAGING, DECISION MAKING, AND DOCUMENTATION GREATER THAN 45 MINUTES. - Past Medical Family Social History Past Med/Fam/Surg Hx: No changes since H&P Allergies: Allergies No Known Drug Allergies Allergy (Verified 07/25/21 17:45) - Review of Systems ROS: No change since H&P - Vital Signs and I&O's Vital Signs: Temperature 98.1 F Pulse Rate [Right Radial] 72 Pulse Rate 75 Respiratory Rate 20 Blood Pressure [Right Arm] 165/70 Blood Pressure 113/57 O2 Sat by Pulse Oximetry 96 Intake and Output: Intake & Output 07/29/21 07/30/21 07/31/21 08/01/21 11:59 11:59 11:59 11:59 Intake Total 1710 / 1710 2097 / 2097 833 / 833 Output Total 3100 / 3100 2074 / 2074 425 / 425 Balance -1390 / -1390 408 / 408 - Physical Exam Oriented: Normal Eyes: Normal Ear: Normal Nose: Normal Throat: Normal Respiratory: Generalized, Diminished Cardiovascular: Normal : Normal Auscultation: Bowel Sounds: Normal Palpation: Normal Tenderness: Normal Skin: Normal Musculoskeletal: Normal Psychiatric: Normal Mood Description: Calm Affect: Normal Speech Pattern: Clear, Appropriate - Laboratory and Diagnostics Result Diagrams: 07/31/21 05:27 07/31/21 05:27 Labs: 07/25/21 19:10 Urine,Catheterized Urine Culture - Final Escherichia Coli Klebsiella Pneumoniae Laboratory WBC 4.7 X10^3/uL (3.6-10.0) 07/31/21 05:27 RBC 3.50 X10^6/uL (3.5-5.4) 07/31/21 05:27 Hgb 10.1 g/dL (12.0-16.0) L 07/31/21 05:27 Hct 29.5 % (36.0-47.0) L 07/31/21 05:27 MCV 84.1 fL (80.0-100.0) 07/31/21 05:27 MCH 28.7 pg (27.0-34.0) 07/31/21 05:27 MCHC 34.2 g/dL (33.0-35.0) 07/31/21 05:27 RDW 15.6 % (11.6-16.5) 07/31/21 05:27 Plt Count 246 X10^3/uL (150.0-450.0) 07/31/21 05:27 MPV 8.2 fL (7.4-11.0) 07/31/21 05:27 Neut % (Auto) 67.7 % (42.0-75.0) 07/31/21 05:27 Lymph % (Auto) 15.7 % (21.0-51.0) L 07/31/21 05:27 [place] % (Auto) 13.0 % (0.0-13.0) 07/31/21 05:27 Eos % (Auto) 2.6 % (0.9-2.9) 07/31/21 05:27 Baso % (Auto) 1.0 % (0.2-1.0) 07/31/21 05:27 Neut # (Auto) 3.2 x10^3/uL (2.2-4.8) 07/31/21 05:27 Lymph # (Auto) 0.7 X10^3/uL (1.3-2.9) L 07/31/21 05:27 [place] # (Auto) 0.6 x10^3/uL (0.3-0.8) 07/31/21 05:27 Eos # (Auto) 0.1 x10^3/uL (0.0-0.2) 07/31/21 05:27 Baso # (Auto) 0.0 X10^3/uL (0.0-0.1) 07/31/21 05:27 Absolute Nucleated RBC 0.1 /100WBC 07/31/21 05:27 PT 14.1 SECONDS (11.8-14.3) 07/26/21 07:09 INR Target Range - 07/26/21 07:09 INR 1.15 (0.8-1.3) 07/26/21 07:09 APTT 31.9 SECONDS (22.9-36.5) 07/26/21 07:09 PTT Comment - 07/26/21 07:09 Sodium 133 mmol/L (136-145) L 07/31/21 05:27 Corrected Sodium TNP 07/31/21 05:27 Potassium 3.8 mmol/L (3.5-5.1) 07/31/21 05:27 Chloride 102 mmol/L (98-107) 07/31/21 05:27 Carbon Dioxide 25.2 mmol/L (21-32) 07/31/21 05:27 BUN 12 mg/dL (7-18) 07/31/21 05:27 Creatinine 0.54 mg/dL (0.55-1.02) L 07/31/21 05:27 Est GFR (MDRD) Af Amer > 60 (>60) 07/31/21 05:27 Est GFR (MDRD) Non-Af > 60 (>60) 07/31/21 05:27 Glucose 98 mg/dL (65-99) 07/31/21 05:27 Hemoglobin A1c 5.1 % 07/27/21 05:14 Calcium 7.7 mg/dL (8.5-10.1) L 07/31/21 05:27 Corrected Calcium 9.5 mg/dL (8.5-10.1) 07/31/21 05:27 Magnesium 1.9 mg/dL (1.7-2.9) 07/27/21 05:14 Total Bilirubin 0.20 mg/dL (0.2-1.0) 07/31/21 05:27 AST 165 Units/L (15-37) H 07/31/21 05:27 ALT 229 Units/L (12-78) H 07/31/21 05:27 Alkaline Phosphatase 147 Units/L (46-116) H 07/31/21 05:27 Creatine Kinase 20 Units/L (26-192) L 07/26/21 11:15 CK-MB (CK-2) < 1.0 ng/mL (0-4.0) 07/26/21 11:15 CK/CKMB % Calc 5.0 % (<4) 07/26/21 11:15 Troponin I < 0.02 ng/mL (0-1.5) 07/26/21 11:15 Total Protein 5.3 g/dL (6.4-8.2) L 07/31/21 05:27 Albumin 1.8 g/dL (3.4-5.0) L 07/31/21 05:27 Globulin 3.5 g/dL (2.5-4.5) 07/31/21 05:27 Albumin/Globulin Ratio 0.5 Ratio (1.1-2.1) L 07/31/21 05:27 Triglycerides 51 mg/dL (0-150) 07/27/21 05:14 Cholesterol 164 mg/dL (0-200) 07/27/21 05:14 LDL Cholesterol, Calc 73 mg/dL (0-100) 07/27/21 05:14 HDL Cholesterol 81 mg/dL (40-60) H 07/27/21 05:14 Cholesterol/HDL Ratio 2.0 (0.0-5.0) 07/27/21 05:14 Specimen Type Catherized urine 07/26/21 12:50 Urine Color Yellow (YELLOW) 07/26/21 12:50 Urine Appearance Clear (CLEAR) 07/26/21 12:50 Urine pH 6.5 (5.0 - 8.0) 07/26/21 12:50 Ur Specific [place] 1.010 (1.000-1.030) 07/26/21 12:50 Urine Protein 1+ (NEGATIVE) 07/26/21 12:50 Urine Glucose (UA) Negative (NEGATIVE) 07/26/21 12:50 Urine Ketones Negative (NEGATIVE) 07/26/21 12:50 Urine Occult Blood 4+ (NEGATIVE) 07/26/21 12:50 Urine Nitrite Negative (NEGATIVE) 07/26/21 12:50 Urine Bilirubin Negative (NEGATIVE) 07/26/21 12:50 Urine Urobilinogen Normal (NORMAL) 07/26/21 12:50 Ur Leukocyte Esterase 3+ (NEGATIVE) 07/26/21 12:50 Urine RBC 10-20 /HPF (0-3) A 07/26/21 12:50 Urine WBC 5-10 /HPF (0-5) A 07/26/21 12:50 Ur Squamous Epith Cells Few /HPF (NEGATIVE) 07/26/21 12:50 Urine Bacteria Trace /HPF (NEGATIVE) 07/26/21 12:50 Ur Culture Indicated? No/not indicated 07/26/21 12:50 SARS-CoV-2 (PCR) Negative (NEGATIVE) 07/25/21 18:29 Influenza Type A (PCR) Negative (NEGATIVE) 07/25/21 18:29 Influenza Type B (PCR) Negative (NEGATIVE) 07/25/21 18:29 RSV (PCR) Negative (NEGATIVE) 07/25/21 18:29 - Plan (1) Acute hyponatremia Status: Acute (2) UTI (urinary tract infection) Status: Acute Qualifiers: Urinary tract infection type: site unspecified Hematuria presence: with hematuria Qualified Code(s): N39.0 - Urinary tract infection, site not specified; R31.9 - Hematuria, unspecified (3) Generalized weakness Status: Acute
[2021-07-31] MEDS: VITAMIN D3 125 mcg (5,000 UNITS) PO SCH (15:46)
[2021-07-31] MEDS: ESTRACE PO SCH (15:49)
[2021-07-31] MEDS: MICRO K EXTEN CAP 10 MEQ PO SCH (15:49)
[2021-07-31] MEDS: NS 1000 ML 1,000 ML IV SCH ×2 (19:14→19:18)
[2021-07-31] MEDS: PROzac PO SCH (19:16)
[2021-07-31] MEDS: LIPITOR TAB 20 MG PO SCH (21:06)
[2021-07-31] MEDS: CARDIZEM CD 180 MG 24-HR PO SCH (21:07)
[2021-07-31] MEDS: DIOVAN TAB 80 MG PO SCH (21:07)
[2021-07-31] MEDS: MELATONIN PO SCH (21:08)
[2021-08-01] MEDS: ZOFRAN INJ 4 MG VIAL IVP PRN (00:10)
[2021-08-01] MEDS: MORPHINE SULFATE INJ 2 MG INJ IVP PRN (01:00)
[2021-08-01] MEDS: NS 1000 ML 1,000 ML IV SCH ×2 (01:17→07:13)
[2021-08-01] MEDS: MYSOLINE TAB 250 MG PO SCH (05:10)
[2021-08-01] MEDS: REQUIP PO SCH (05:10)
[2021-08-01 06:30] LABS: BASOPHILS % (AUTO) 0.6 % (0.2-1.0); EOSINOPHILS # (AUTO) 0.2 x10^3/uL (0.0-0.2); EOSINOPHILS % (AUTO) 3.2 % (0.9-2.9); HEMATOCRIT 31.4 % (36.0-47.0); HEMOGLOBIN 10.8 g/dL (12.0-16.0); LYMPHOCYTES # (AUTO) 0.9 X10^3/uL (1.3-2.9); MEAN CORPUSCULAR HEMOGLOBIN 29.1 pg (27.0-34.0); MEAN CORPUSCULAR HGB CONC 34.3 g/dL (33.0-35.0); MEAN CORPUSCULAR VOLUME 84.9 fL (80.0-100.0); MEAN PLATELET VOLUME 7.6 fL (7.4-11.0); MONOCYTES # (AUTO) 0.7 x10^3/uL (0.3-0.8); MONOCYTES % (AUTO) 11.6 % (0.0-13.0); NEUTROPHILS # (AUTO) 4.2 x10^3/uL (2.2-4.8); NEUTROPHILS % (AUTO) 69.6 % (42.0-75.0); PLATELET COUNT 269 X10^3/uL (150.0-450.0); RED CELL DISTRIBUTION WIDTH 15.4 % (11.6-16.5)
[2021-08-01 06:46] LABS: ALANINE AMINOTRANSFERASE 197 Units/L (12-78); ALBUMIN 1.8 g/dL (3.4-5.0); ALKALINE PHOSPHATASE 148 Units/L (46-116); ASPARTATE AMINO TRANSFERASE 133 Units/L (15-37); BLOOD UREA NITROGEN 9 mg/dL (7-18); CALCIUM 7.8 mg/dL (8.5-10.1); CHLORIDE 99 mmol/L (98-107); COR CA(FOR HYPOALB) 9.6 mg/dL (8.5-10.1); CREATININE 0.66 mg/dL (0.55-1.02); SODIUM 132 mmol/L (136-145); TOTAL PROTEIN 5.6 g/dL (6.4-8.2); eGFR NON BLACK RACES > 60 (>60)
[2021-08-01 07:51] VITALS: BP 132/74
[2021-08-01] MEDS: ACTOS PO SCH (09:02)
[2021-08-01] MEDS: THERMOTABS PO SCH (09:02)
[2021-08-01] MEDS: ELIQUIS PO SCH (09:02)
[2021-08-01] MEDS: PROTONIX TAB 40 MG PO SCH (09:02)
[2021-08-01] MEDS: TAB-A-VITE PO SCH (09:02)
[2021-08-01] MEDS: TYGACIL 50 MG VIAL 50 MG in NS 100 ML IV 100 ML IV SCH (09:03)
[2021-08-01] MEDS: XANAX PO SCH (09:05)
[2021-08-01] MEDS: CORDARONE TAB 200 MG PO SCH (09:06)
== END 2021-08-01 11:25 | disposition home health service (06) | DRG 690 ==
LOC: ER 17:44 → OBS 23:25 → MED/SURG 07-28 17:30
PROVIDERS: ADMIT Obstetrics & Gynecology Obstetrics; ATTEND Obstetrics & Gynecology Obstetrics
DX: R26.89 Other abnormalities of gait and mobility; R94.5 Abnormal results of liver function studies; I48.91 Unspecified atrial fibrillation; B96.1 Klebsiella pneumoniae [K. pneumoniae] as the cause of diseases classified elsewhere; B96.29 Other Escherichia coli [E. coli] as the cause of diseases classified elsewhere; E87.1 Hypo-osmolality and hyponatremia; N39.0 Urinary tract infection, site not specified; R07.2 Precordial pain; Z20.822 Contact with and (suspected) exposure to COVID-19; R53.1 Weakness

== ENCOUNTER 2021-08-15 00:14 | Observation (INO) ==
[2021-08-15 00:26] VITALS: BMI 29.1
--- NOTE | 2021-08-15 00:34 | DR.DIZZY ---
HPI Time seen Time Seen by Provider: 08/15/21 00:33 PCP Primary Care Physician: GURMEET SHIRLEY HPI Comment HPI Comment: Started feeling weak and out of sorts today; progressively worsening; thinks her sodium is low again; recently discharged with salt tablets after a bout with low sodium; no fever, chills, abd pain, n/v/d; she is taking meds as prescribed Complaint Chief Complaint:: PT IN ED VIA WHEELCHAIR WITH C/O PHYSICALLY BEING UNABLE TO MOVE. STATES SODIUM IS LOW. COVID-19 Coronavirus risk:travel/contact w/high risk person: No Has patient experienced Coronavirus symptoms: No Source History Provided: Patient and Family Member Mode of Arrival Mode of Arrival: Wheelchair Timing Onset of Chief Complaint: 08/06/21 Context Stroke Symptoms: Weakness of limb PMH PMH Past Medical History: Yes Past Medical History: Anemia, Depression and Liver Disease Past Medical History Comment: [place] A-FIB Past Surgical History: Yes Surgical History: Bowel Resection, Cholecystectomy, Hysterectomy and Ortho Surgery Past Surgical History Comment: BACK COLOSTOMY AND REVERSAL Family History History of Family Medical Conditions: Yes Family Medical History: Cancer and [place] Social History Does patient currently use any type of tobacco product: No Have you used tobacco products in the last 12 months: No Type of Tobacco Use: None Does any household member use tobacco: No Alcohol Use: None Do you use any recreational Drugs:: No Lives With: Family Lives Where: Home Travel Risk Coronavirus risk:travel/contact w/high risk person: No Has patient experienced Coronavirus symptoms: No Infectious screening In the last 2 months have you had wt loss of >10#?: NO Have you had fever, night sweats or hemotysis?: No Have you traveled outside the country in the last 6 months?: No Isolation: Standard ROS Review of Systems Constitutional: No Symptoms Reported Eyes: No Symptoms Reported ENTM: No Symptoms Reported Respiratoy: No Symptoms Reported Cardiovascular: No Symptoms Reported Gastrointestinal/Abdominal: No Symptoms Reported Genitourinary: No Symptoms Reported Integumentary: No Symptoms Reported Hematologic/Lymphatic: No Symptoms Reported Endocrine: No Symptoms Reported Psychiatric: No Symptoms Reported PE Vital Signs Vitals: Temperature 97.8 F Pulse Rate 74 Respiratory Rate 20 Blood Pressure [Right Arm] 132/74 Blood Pressure 159/71 O2 Sat by Pulse Oximetry 98 General Limitations: Physical Limitation (arrives in wheelchair) General Appearance: Alert and In No Apparent Distress Head Head Exam: Normal Inspection Eyes Eye exam: Normal Appearance ENT ENT Exam: Normal Exam, Normal Oropharynx and Normal External Ear Exam Neck Neck Exam: Normal Inspection and Full ROM Chest Chest Inspection: Normal Inspection Respiratory Respiratory Exam: Normal Lung Sounds Bilat Cardiovascular Cardiovascular Exam: Regular Rate and Normal Rhythm Abdominal Exam Abdominal Exam: Normal Inspection, Normal Bowel Sounds and Soft Rectal Rectal Exam: Deferred Extremeties Extremities Exam: Normal Inspection and Full ROM Back Back Exam: Normal Inspection and Full ROM Neurologic Neurological Exam: Alert and Oriented X3 Psychiatric Psychiatric Exam: Normal Affect and Normal Mood Skin Skin Exam: Warm, Dry, Intact and Normal Color COURSE Consultation Call Returned: 02:06 (Dr Naidu will admit pt.) ROR Labs Reviewed Laboratory Results Reviewed?: Yes Result Diagrams: 08/15/21 00:43 08/15/21 00:43 Laboratory: WBC 6.2 X10^3/uL (3.6-10.0) 08/15/21 00:43 RBC 4.29 X10^6/uL (3.5-5.4) 08/15/21 00:43 Hgb 12.3 g/dL (12.0-16.0) 08/15/21 00:43 Hct 36.7 % (36.0-47.0) 08/15/21 00:43 MCV 85.7 fL (80.0-100.0) 08/15/21 00:43 MCH 28.7 pg (27.0-34.0) 08/15/21 00:43 MCHC 33.5 g/dL (33.0-35.0) 08/15/21 00:43 RDW 16.6 % (11.6-16.5) H 08/15/21 00:43 Plt Count 293 X10^3/uL (150.0-450.0) 08/15/21 00:43 MPV 8.5 fL (7.4-11.0) 08/15/21 00:43 Neut % (Auto) 63.1 % (42.0-75.0) 08/15/21 00:43 Lymph % (Auto) 22.2 % (21.0-51.0) 08/15/21 00:43 [place] % (Auto) 10.5 % (0.0-13.0) 08/15/21 00:43 Eos % (Auto) 3.4 % (0.9-2.9) H 08/15/21 00:43 Baso % (Auto) 0.8 % (0.2-1.0) 08/15/21 00:43 Neut # (Auto) 3.9 x10^3/uL (2.2-4.8) 08/15/21 00:43 Lymph # (Auto) 1.4 X10^3/uL (1.3-2.9) 08/15/21 00:43 [place] # (Auto) 0.6 x10^3/uL (0.3-0.8) 08/15/21 00:43 Eos # (Auto) 0.2 x10^3/uL (0.0-0.2) 08/15/21 00:43 Baso # (Auto) 0.0 X10^3/uL (0.0-0.1) 08/15/21 00:43 Absolute Nucleated RBC 0.1 /100WBC 08/15/21 00:43 Sodium 128 mmol/L (136-145) L 08/15/21 00:43 Corrected Sodium TNP 08/15/21 00:43 Potassium 4.0 mmol/L (3.5-5.1) 08/15/21 00:43 Chloride 93 mmol/L (98-107) L 08/15/21 00:43 Carbon Dioxide 28.1 mmol/L (21-32) 08/15/21 00:43 BUN 12 mg/dL (7-18) 08/15/21 00:43 Creatinine 0.96 mg/dL (0.55-1.02) 08/15/21 00:43 Est GFR (MDRD) Af Amer > 60 (>60) 08/15/21 00:43 Est GFR (MDRD) Non-Af 60 (>60) 08/15/21 00:43 Glucose 98 mg/dL (65-99) 08/15/21 00:43 Calcium 8.9 mg/dL (8.5-10.1) 08/15/21 00:43 Corrected Calcium 9.8 mg/dL (8.5-10.1) 08/15/21 00:43 Total Bilirubin 0.30 mg/dL (0.2-1.0) 08/15/21 00:43 AST 58 Units/L (15-37) H 08/15/21 00:43 ALT 67 Units/L (12-78) 08/15/21 00:43 Alkaline Phosphatase 138 Units/L (46-116) H 08/15/21 00:43 Total Protein 7.2 g/dL (6.4-8.2) 08/15/21 00:43 Albumin 2.9 g/dL (3.4-5.0) L 08/15/21 00:43 Globulin 4.3 g/dL (2.5-4.5) 08/15/21 00:43 Albumin/Globulin Ratio 0.7 Ratio (1.1-2.1) L 08/15/21 00:43 XRAY XRAY Interpreted by: Radiologist X-ray Results: 07/25/21 Findings could represent the sequela of an atypical/viral infectious process. Chronic interstitial changes related to the patient's sarcoidosis or also a consideration. No focal consolidation. No significant interval changes. Opioid Opioid Risk Tool Age ([place] box if 16-45): No History of Preadolescent Sexual Abuse: No Total: 0 Total Score Risk Category: Low Risk Copyright: Josesito GALAN predicting aberrant behaviors Diagnosis Discharge Problem: Acute hyponatremia, Generalized weakness Instructions Forms: [facility] Social Distancing
[2021-08-15 01:01] LABS: ALANINE AMINOTRANSFERASE 67 Units/L (12-78); ALBUMIN 2.9 g/dL (3.4-5.0); ALKALINE PHOSPHATASE 138 Units/L (46-116); ASPARTATE AMINO TRANSFERASE 58 Units/L (15-37); BLOOD UREA NITROGEN 12 mg/dL (7-18); CALCIUM 8.9 mg/dL (8.5-10.1); CARBON DIOXIDE 28.1 mmol/L (21-32); CHLORIDE 93 mmol/L (98-107); COR CA(FOR HYPOALB) 9.8 mg/dL (8.5-10.1); CREATININE 0.96 mg/dL (0.55-1.02); SODIUM 128 mmol/L (136-145); TOTAL PROTEIN 7.2 g/dL (6.4-8.2); eGFR NON BLACK RACES 60 (>60)
[2021-08-15 01:02] LABS: BASOPHILS % (AUTO) 0.8 % (0.2-1.0); EOSINOPHILS # (AUTO) 0.2 x10^3/uL (0.0-0.2); EOSINOPHILS % (AUTO) 3.4 % (0.9-2.9); HEMATOCRIT 36.7 % (36.0-47.0); HEMOGLOBIN 12.3 g/dL (12.0-16.0); LYMPHOCYTES # (AUTO) 1.4 X10^3/uL (1.3-2.9); LYMPHOCYTES % (AUTO) 22.2 % (21.0-51.0); MEAN CORPUSCULAR HEMOGLOBIN 28.7 pg (27.0-34.0); MEAN CORPUSCULAR HGB CONC 33.5 g/dL (33.0-35.0); MEAN CORPUSCULAR VOLUME 85.7 fL (80.0-100.0); MEAN PLATELET VOLUME 8.5 fL (7.4-11.0); MONOCYTES # (AUTO) 0.6 x10^3/uL (0.3-0.8); MONOCYTES % (AUTO) 10.5 % (0.0-13.0); NEUTROPHILS # (AUTO) 3.9 x10^3/uL (2.2-4.8); NEUTROPHILS % (AUTO) 63.1 % (42.0-75.0); PLATELET COUNT 293 X10^3/uL (150.0-450.0); RED BLOOD COUNT 4.29 X10^6/uL (3.5-5.4); RED CELL DISTRIBUTION WIDTH 16.6 % (11.6-16.5); WHITE BLOOD COUNT 6.2 X10^3/uL (3.6-10.0)
[2021-08-15] MEDS ORDERED: NS 1000 ML 1,000 ML IV SCH (02:00)
[2021-08-15] MEDS ORDERED: NS 1000 ML 1,000 ML ONE (02:31)
[2021-08-15] MEDS: NS 1000 ML 1,000 ML IV SCH ×4 (02:40→20:40)
[2021-08-15] MEDS ORDERED: ULTRAM PO ONE (02:44)
[2021-08-15] MEDS ORDERED: ULTRAM ONE (02:45)
[2021-08-15 02:52] LABS: BILIRUBIN,URINE NEGATIVE (NEGATIVE); BLOOD/HEMOGLOBIN,URINE 1+ (NEGATIVE); GLUCOSE, URINE NEGATIVE (NEGATIVE); KETONES,URINE NEGATIVE (NEGATIVE); LEUKOCYTE ESTERASE ,URINE 3+ (NEGATIVE); NITRITES,URINE POSITIVE (NEGATIVE); PROTEIN,URINE NEGATIVE (NEGATIVE); UROBILINOGEN,URINE NORMAL (NORMAL)
[2021-08-15 02:59] LABS: APPEARANCE,URINE CLOUDY (CLEAR); COLOR,URINE YELLOW (YELLOW)
[2021-08-15 03:00] LABS: BACTERIA,URINE 3+ /HPF (NEGATIVE); RBC,URINE NONE SEEN /HPF (0-3); SQUAMOUS EPITHELIAL CELL,UR RARE /HPF (NEGATIVE)
[2021-08-15 04:24] LABS: BASOPHILS % (AUTO) 0.8 % (0.2-1.0); EOSINOPHILS # (AUTO) 0.2 x10^3/uL (0.0-0.2); EOSINOPHILS % (AUTO) 3.7 % (0.9-2.9); HEMATOCRIT 34.4 % (36.0-47.0); HEMOGLOBIN 11.6 g/dL (12.0-16.0); LYMPHOCYTES # (AUTO) 1.2 X10^3/uL (1.3-2.9); LYMPHOCYTES % (AUTO) 22.6 % (21.0-51.0); MEAN CORPUSCULAR HEMOGLOBIN 28.4 pg (27.0-34.0); MEAN CORPUSCULAR HGB CONC 33.6 g/dL (33.0-35.0); MEAN CORPUSCULAR VOLUME 84.6 fL (80.0-100.0); MEAN PLATELET VOLUME 8.4 fL (7.4-11.0); MONOCYTES # (AUTO) 0.6 x10^3/uL (0.3-0.8); MONOCYTES % (AUTO) 10.8 % (0.0-13.0); NEUTROPHILS # (AUTO) 3.3 x10^3/uL (2.2-4.8); NEUTROPHILS % (AUTO) 62.1 % (42.0-75.0); PLATELET COUNT 271 X10^3/uL (150.0-450.0); RED BLOOD COUNT 4.07 X10^6/uL (3.5-5.4); RED CELL DISTRIBUTION WIDTH 16.2 % (11.6-16.5); WHITE BLOOD COUNT 5.3 X10^3/uL (3.6-10.0)
[2021-08-15 04:37] LABS: ALANINE AMINOTRANSFERASE 63 Units/L (12-78); ALBUMIN 2.8 g/dL (3.4-5.0); ALKALINE PHOSPHATASE 126 Units/L (46-116); ASPARTATE AMINO TRANSFERASE 55 Units/L (15-37); BLOOD UREA NITROGEN 11 mg/dL (7-18); CALCIUM 8.5 mg/dL (8.5-10.1); CHLORIDE 94 mmol/L (98-107); COR CA(FOR HYPOALB) 9.5 mg/dL (8.5-10.1); CREATININE 0.87 mg/dL (0.55-1.02); SODIUM 128 mmol/L (136-145); TOTAL PROTEIN 6.7 g/dL (6.4-8.2); eGFR NON BLACK RACES > 60 (>60)
[2021-08-15] MEDS: ROCEPHIN 1 GRAM IV PREMIX 1 G/50 ML IV.SOLN. IV SCH ×2 (05:54→08:42)
--- NOTE | 2021-08-15 14:53 | DR.H&P ---
H&P History & Physical for Day of: H&P Date: 08/15/21 Chief Complaint Chief Complaint: Sodium is low. Allergies Allergies Allergy/AdvReac Type Severity Reaction Status Date / Time No Known Drug Allergies Allergy Verified 07/25/21 17:45 History of Present Illness History of Present Illness: 75 yo WF who presented to ED with weakness and and reporting her legs felt heavy. She states she has a recent hx of low Na. She was here hospitalized 2 weeks ago for hyponatremia in which she was discharged on salt tablets. Past Medical History Past Medical History: Anemia, Anxiety, Depression and Liver Disease Additional Medical History: A-Fib Past Surgical History Surgical History: Bowel Resection, Cholecystectomy, Hysterectomy and Ortho Khan rgery Family History Family Medical History: Cancer and [place] Social History Does patient currently use any type of tobacco product: No Have you used tobacco products in the last 12 months: No Type of Tobacco Use: None Does any household member use tobacco: No Alcohol Use: None Drug Use: None Medications Home Medications: No Known Drug Allergies Allergy (Verified 07/25/21 17:45) CONTINUE taking the following medications aripiprazole 2.5 mg PO QNOON 08/15/21 [History] ferrous sulfate 325 mg PO BID 08/15/21 [History] multivitamin [Hair,Nails and Skin Vitamin] 1 tab PO QAM 08/15/21 [History] pioglitazone 15 mg PO BID 08/15/21 [History] senna [Senokot Xtra] 748 mg PO BID 08/15/21 [History] sod wotnzexg-rgdtldizq-knntnso [Thermotabs] 1 tab PO TID 08/15/21 [History] sod.chlorid-potassium chloride [Thermotabs] 1 tab PO TID 08/15/21 [History] tramadol 50 mg PO BID 08/15/21 [History] Labs Result Diagrams: 08/15/21 04:04 08/15/21 04:04 Labs: 08/15/21 02:20 Urine,Catheterized Urine Culture - Preliminary Laboratory WBC 5.3 X10^3/uL (3.6-10.0) 08/15/21 04:04 RBC 4.07 X10^6/uL (3.5-5.4) 08/15/21 04:04 Hgb 11.6 g/dL (12.0-16.0) L 08/15/21 04:04 Hct 34.4 % (36.0-47.0) L 08/15/21 04:04 MCV 84.6 fL (80.0-100.0) 08/15/21 04:04 MCH 28.4 pg (27.0-34.0) 08/15/21 04:04 MCHC 33.6 g/dL (33.0-35.0) 08/15/21 04:04 RDW 16.2 % (11.6-16.5) 08/15/21 04:04 Plt Count 271 X10^3/uL (150.0-450.0) 08/15/21 04:04 MPV 8.4 fL (7.4-11.0) 08/15/21 04:04 Neut % (Auto) 62.1 % (42.0-75.0) 08/15/21 04:04 Lymph % (Auto) 22.6 % (21.0-51.0) 08/15/21 04:04 [place] % (Auto) 10.8 % (0.0-13.0) 08/15/21 04:04 Eos % (Auto) 3.7 % (0.9-2.9) H 08/15/21 04:04 Baso % (Auto) 0.8 % (0.2-1.0) 08/15/21 04:04 Neut # (Auto) 3.3 x10^3/uL (2.2-4.8) 08/15/21 04:04 Lymph # (Auto) 1.2 X10^3/uL (1.3-2.9) L 08/15/21 04:04 [place] # (Auto) 0.6 x10^3/uL (0.3-0.8) 08/15/21 04:04 Eos # (Auto) 0.2 x10^3/uL (0.0-0.2) 08/15/21 04:04 Baso # (Auto) 0.0 X10^3/uL (0.0-0.1) 08/15/21 04:04 Absolute Nucleated RBC 0.1 /100WBC 08/15/21 04:04 Sodium 128 mmol/L (136-145) L 08/15/21 04:04 Corrected Sodium TNP 08/15/21 04:04 Potassium 3.9 mmol/L (3.5-5.1) 08/15/21 04:04 Chloride 94 mmol/L (98-107) L 08/15/21 04:04 Carbon Dioxide 29.0 mmol/L (21-32) 08/15/21 04:04 BUN 11 mg/dL (7-18) 08/15/21 04:04 Creatinine 0.87 mg/dL (0.55-1.02) 08/15/21 04:04 Est GFR (MDRD) Af Amer > 60 (>60) 08/15/21 04:04 Est GFR (MDRD) Non-Af > 60 (>60) 08/15/21 04:04 Glucose 96 mg/dL (65-99) 08/15/21 04:04 Calcium 8.5 mg/dL (8.5-10.1) 08/15/21 04:04 Corrected Calcium 9.5 mg/dL (8.5-10.1) 08/15/21 04:04 Total Bilirubin 0.30 mg/dL (0.2-1.0) 08/15/21 04:04 AST 55 Units/L (15-37) H 08/15/21 04:04 ALT 63 Units/L (12-78) 08/15/21 04:04 Alkaline Phosphatase 126 Units/L (46-116) H 08/15/21 04:04 Total Protein 6.7 g/dL (6.4-8.2) 08/15/21 04:04 Albumin 2.8 g/dL (3.4-5.0) L 08/15/21 04:04 Globulin 3.9 g/dL (2.5-4.5) 08/15/21 04:04 Albumin/Globulin Ratio 0.7 Ratio (1.1-2.1) L 08/15/21 04:04 Specimen Type Catherized urine 08/15/21 02:20 Urine Color Yellow (YELLOW) 08/15/21 02:20 Urine Appearance Cloudy (CLEAR) 08/15/21 02:20 Urine pH 6.0 (5.0 - 8.0) 08/15/21 02:20 Ur Specific [place] 1.020 (1.000-1.030) 08/15/21 02:20 Urine Protein Negative (NEGATIVE) 08/15/21 02:20 Urine Glucose (UA) Negative (NEGATIVE) 08/15/21 02:20 Urine Ketones Negative (NEGATIVE) 08/15/21 02:20 Urine Occult Blood 1+ (NEGATIVE) 08/15/21 02:20 Urine Nitrite Positive (NEGATIVE) 08/15/21 02:20 Urine Bilirubin Negative (NEGATIVE) 08/15/21 02:20 Urine Urobilinogen Normal (NORMAL) 08/15/21 02:20 Ur Leukocyte Esterase 3+ (NEGATIVE) 08/15/21 02:20 Urine RBC None seen /HPF (0-3) 08/15/21 02:20 Urine WBC 30-50 /HPF (0-5) A 08/15/21 02:20 Ur Squamous Epith Cells Rare /HPF (NEGATIVE) 08/15/21 02:20 Urine Bacteria 3+ /HPF (NEGATIVE) 08/15/21 02:20 Ur Culture Indicated? Yes/culture set up 08/15/21 02:20 SARS CoV-2 RNA Rapid ILDA Negative (NEGATIVE) 08/15/21 02:40 Review of Systems Constitutional: Weakness Eyes: No Symptoms Reported ENT: No Symptoms Reported Respiratory: No Symptoms Reported Cardiovascular: No Symptoms Reported Gastrointestinal: Nausea Genitourinary: No Symptoms Reported Musculoskeletal: No Symptoms Reported Skin: No Symptoms Reported Neurological: Weakness and Confusion Physical Exam Vital Signs: Temperature 97.8 F Pulse Rate [Left] 73 Pulse Rate 70 Respiratory Rate 20 Blood Pressure [Left Arm] 155/69 Blood Pressure [Right Arm] 156/68 Blood Pressure 156/69 O2 Sat by Pulse Oximetry 97 Oriented: Normal Eyes: Normal Ear: Normal Nose: Normal Respiratory: Clear Throughout Cardiovascular: Irregular Auscultation: Bowel Sounds: Normal Palpation: Normal Tenderness: Normal Skin: Normal Musculoskeletal: Normal Mood Description: Calm Affect: Normal Speech Pattern: Clear Assessment/Plan (1) Anxiety: Status: Acute Plan: D/C Xanax and change to Klonopin. (2) Depression: Status: Acute Plan: D/C Cymbalta as it may cause Hyponatremia. (3) Chronic hyponatremia: Status: Acute Plan: NS IV (4) A-fib: Status: Acute Plan: Continue home meds. Review H&P Reviewed: Yes Patient was examined?: Yes
[2021-08-15] MEDS ORDERED: ACTOS PO SCH ×2 (18:15→21:00)
[2021-08-15] MEDS ORDERED: SENNA PO SCH ×2 (18:15→21:00)
[2021-08-15] MEDS: ELIQUIS PO SCH ×2 (19:00→20:04)
[2021-08-15] MEDS: MELATONIN PO SCH ×2 (19:01→20:03)
[2021-08-15] MEDS: DIOVAN TAB 80 MG PO SCH ×2 (19:01→20:38)
[2021-08-15] MEDS: CARDIZEM CD 180 MG 24-HR PO SCH ×2 (19:01→20:03)
[2021-08-15] MEDS: LIPITOR TAB 20 MG PO SCH ×2 (19:01→20:03)
[2021-08-15] MEDS: REQUIP PO SCH (19:02)
[2021-08-15] MEDS: MYSOLINE TAB 250 MG PO SCH (19:02)
[2021-08-15] MEDS: ULTRAM PO SCH ×2 (19:09→20:37)
[2021-08-15] MEDS: FERROUS GLUCONATE PO SCH ×2 (19:09→20:32)
[2021-08-15] MEDS ORDERED: ACTOS PO ONE (19:10)
[2021-08-15] MEDS: KLONOPIN TAB 0.5 MG PO PRN (19:30)
[2021-08-15] MEDS ORDERED: SENOKOT PO ONE (20:35)
[2021-08-15] MEDS: THERMOTABS PO SCH ×2 (20:37→21:26)
[2021-08-15] MEDS: [UNRECOGNIZED DRUG - OTHER] PO SCH ×2 (20:37→21:26)
[2021-08-15] MEDS: SENOKOT PO SCH (20:55)
[2021-08-15] MEDS ORDERED: MELATONIN PO SCH (21:00)
[2021-08-15] MEDS ORDERED: CARDIZEM CD 180 MG 24-HR PO SCH (21:00)
[2021-08-15] MEDS ORDERED: ULTRAM PO SCH (21:00)
[2021-08-15] MEDS ORDERED: ELIQUIS PO SCH (21:00)
[2021-08-15] MEDS ORDERED: DILTIAZEM HCL 180 MG PO SCH (21:00)
[2021-08-15] MEDS ORDERED: FERROUS SULFATE PO SCH (21:00)
[2021-08-15] MEDS ORDERED: DIOVAN TAB 80 MG PO SCH (21:00)
[2021-08-15] MEDS ORDERED: [UNRECOGNIZED DRUG - OTHER] PO SCH (21:00)
[2021-08-15] MEDS ORDERED: FERROUS GLUCONATE PO SCH (21:00)
[2021-08-15] MEDS ORDERED: PATIENT'S HOME MEDICATION (Melatonin 10 mg Tablet) PO SCH (21:00)
[2021-08-15] MEDS ORDERED: LIPITOR TAB 20 MG PO SCH (21:00)
[2021-08-15] MEDS ORDERED: [UNRECOGNIZED DRUG - OTHER] PO SCH (22:00)
[2021-08-15] MEDS ORDERED: THERMOTABS PO SCH (22:00)
[2021-08-15] MEDS ORDERED: REQUIP PO SCH (22:00)
[2021-08-15] MEDS ORDERED: MYSOLINE TAB 250 MG PO SCH (22:00)
[2021-08-16] MEDS: REQUIP PO SCH ×4 (00:24→21:22)
[2021-08-16] MEDS: MYSOLINE TAB 250 MG PO SCH ×4 (00:24→21:22)
[2021-08-16] MEDS ORDERED: TYLENOL 325 MG TAB PO ONE (02:09)
[2021-08-16] MEDS: TYLENOL 325 MG TAB PO PRN ×2 (02:19→19:31)
[2021-08-16] MEDS: NS 1000 ML 1,000 ML IV SCH ×2 (05:20→19:44)
[2021-08-16] MEDS: [UNRECOGNIZED DRUG - OTHER] PO SCH ×3 (06:20→21:23)
[2021-08-16] MEDS: THERMOTABS PO SCH ×3 (06:21→21:22)
[2021-08-16 06:42] LABS: BASOPHILS % (AUTO) 0.7 % (0.2-1.0); EOSINOPHILS # (AUTO) 0.2 x10^3/uL (0.0-0.2); HEMATOCRIT 31.5 % (36.0-47.0); HEMOGLOBIN 10.6 g/dL (12.0-16.0); LYMPHOCYTES # (AUTO) 1.1 X10^3/uL (1.3-2.9); LYMPHOCYTES % (AUTO) 23.5 % (21.0-51.0); MEAN CORPUSCULAR HEMOGLOBIN 28.6 pg (27.0-34.0); MEAN CORPUSCULAR HGB CONC 33.7 g/dL (33.0-35.0); MEAN CORPUSCULAR VOLUME 84.7 fL (80.0-100.0); MEAN PLATELET VOLUME 8.7 fL (7.4-11.0); MONOCYTES # (AUTO) 0.5 x10^3/uL (0.3-0.8); NEUTROPHILS # (AUTO) 2.8 x10^3/uL (2.2-4.8); NEUTROPHILS % (AUTO) 60.8 % (42.0-75.0); PLATELET COUNT 255 X10^3/uL (150.0-450.0); RED BLOOD COUNT 3.71 X10^6/uL (3.5-5.4); RED CELL DISTRIBUTION WIDTH 16.2 % (11.6-16.5); WHITE BLOOD COUNT 4.6 X10^3/uL (3.6-10.0)
[2021-08-16 06:56] LABS: ALANINE AMINOTRANSFERASE 58 Units/L (12-78); ALBUMIN 2.4 g/dL (3.4-5.0); ALKALINE PHOSPHATASE 115 Units/L (46-116); ASPARTATE AMINO TRANSFERASE 55 Units/L (15-37); BLOOD UREA NITROGEN 7 mg/dL (7-18); CALCIUM 8.2 mg/dL (8.5-10.1); CARBON DIOXIDE 25.3 mmol/L (21-32); CHLORIDE 100 mmol/L (98-107); COR CA(FOR HYPOALB) 9.5 mg/dL (8.5-10.1); CREATININE 0.63 mg/dL (0.55-1.02); SODIUM 133 mmol/L (136-145); TOTAL PROTEIN 6.1 g/dL (6.4-8.2); eGFR NON BLACK RACES > 60 (>60)
[2021-08-16] MEDS: ROCEPHIN 1 GRAM IV PREMIX 1 G/50 ML IV.SOLN. IV SCH (08:22)
[2021-08-16] MEDS: ACTOS PO SCH (08:38)
[2021-08-16] MEDS: PROTONIX TAB 40 MG PO SCH (08:41)
[2021-08-16] MEDS: CORDARONE TAB 200 MG PO SCH (08:42)
[2021-08-16] MEDS: ESTRACE PO SCH (08:43)
[2021-08-16] MEDS: FERROUS GLUCONATE PO SCH ×2 (08:46→20:20)
[2021-08-16] MEDS: ELIQUIS PO SCH ×2 (08:46→20:18)
[2021-08-16] MEDS: ULTRAM PO SCH ×2 (08:47→20:20)
[2021-08-16] MEDS: SENOKOT PO SCH ×2 (08:47→20:20)
--- NOTE | 2021-08-16 08:59 | PCM.PROG ---
Progress Note Progress Note for Day of Date of Exam: 08/16/21 Subjective Subjective: Feels better. Past Medical Family Social History Changes in Past Med/Fam/Surg Hx: HTN Allergies: Allergies No Known Drug Allergies Allergy (Verified 07/25/21 17:45) Review of Systems ROS: No change since H&P Vital Signs and I&O's Vital Signs: Temperature 97.9 F Pulse Rate [Left] 74 Pulse Rate 70 Respiratory Rate 18 Blood Pressure [Left Arm] 162/72 Blood Pressure [Right Arm] 156/68 Blood Pressure 156/69 O2 Sat by Pulse Oximetry 97 Intake and Output: Intake & Output 08/13/21 08/14/21 08/15/21 08/16/21 11:59 11:59 11:59 11:59 Intake Total 0 / 0 1870 / 1870 Output Total 300 / 300 2350 / 2350 Balance -300 / -300 -480 / -480 Physical Exam Oriented: Normal Eyes: Normal Ear: Normal Nose: Normal Respiratory: Normal Cardiovascular: Irregular Auscultation: Bowel Sounds: Normal Tenderness: Normal Skin: Normal Psychiatric: Normal Mood Description: Calm Affect: Normal Speech Pattern: Clear and Appropriate Laboratory and Diagnostics Result Diagrams: 08/16/21 05:49 08/16/21 05:49 Labs: 08/15/21 02:20 Urine,Catheterized Urine Culture - Final Escherichia Coli Laboratory WBC 4.6 X10^3/uL (3.6-10.0) 08/16/21 05:49 RBC 3.71 X10^6/uL (3.5-5.4) 08/16/21 05:49 Hgb 10.6 g/dL (12.0-16.0) L 08/16/21 05:49 Hct 31.5 % (36.0-47.0) L 08/16/21 05:49 MCV 84.7 fL (80.0-100.0) 08/16/21 05:49 MCH 28.6 pg (27.0-34.0) 08/16/21 05:49 MCHC 33.7 g/dL (33.0-35.0) 08/16/21 05:49 RDW 16.2 % (11.6-16.5) 08/16/21 05:49 Plt Count 255 X10^3/uL (150.0-450.0) 08/16/21 05:49 MPV 8.7 fL (7.4-11.0) 08/16/21 05:49 Neut % (Auto) 60.8 % (42.0-75.0) 08/16/21 05:49 Lymph % (Auto) 23.5 % (21.0-51.0) 08/16/21 05:49 [place] % (Auto) 10.0 % (0.0-13.0) 08/16/21 05:49 Eos % (Auto) 5.0 % (0.9-2.9) H 08/16/21 05:49 Baso % (Auto) 0.7 % (0.2-1.0) 08/16/21 05:49 Neut # (Auto) 2.8 x10^3/uL (2.2-4.8) 08/16/21 05:49 Lymph # (Auto) 1.1 X10^3/uL (1.3-2.9) L 08/16/21 05:49 [place] # (Auto) 0.5 x10^3/uL (0.3-0.8) 08/16/21 05:49 Eos # (Auto) 0.2 x10^3/uL (0.0-0.2) 08/16/21 05:49 Baso # (Auto) 0.0 X10^3/uL (0.0-0.1) 08/16/21 05:49 Absolute Nucleated RBC 0.1 /100WBC 08/16/21 05:49 Sodium 133 mmol/L (136-145) L 08/16/21 05:49 Corrected Sodium TNP 08/16/21 05:49 Potassium 3.8 mmol/L (3.5-5.1) 08/16/21 05:49 Chloride 100 mmol/L (98-107) 08/16/21 05:49 Carbon Dioxide 25.3 mmol/L (21-32) 08/16/21 05:49 BUN 7 mg/dL (7-18) 08/16/21 05:49 Creatinine 0.63 mg/dL (0.55-1.02) 08/16/21 05:49 Est GFR (MDRD) Af Amer > 60 (>60) 08/16/21 05:49 Est GFR (MDRD) Non-Af > 60 (>60) 08/16/21 05:49 Glucose 96 mg/dL (65-99) 08/16/21 05:49 Calcium 8.2 mg/dL (8.5-10.1) L 08/16/21 05:49 Corrected Calcium 9.5 mg/dL (8.5-10.1) 08/16/21 05:49 Total Bilirubin 0.20 mg/dL (0.2-1.0) 08/16/21 05:49 AST 55 Units/L (15-37) H 08/16/21 05:49 ALT 58 Units/L (12-78) 08/16/21 05:49 Alkaline Phosphatase 115 Units/L (46-116) 08/16/21 05:49 Total Protein 6.1 g/dL (6.4-8.2) L 08/16/21 05:49 Albumin 2.4 g/dL (3.4-5.0) L 08/16/21 05:49 Globulin 3.7 g/dL (2.5-4.5) 08/16/21 05:49 Albumin/Globulin Ratio 0.6 Ratio (1.1-2.1) L 08/16/21 05:49 Specimen Type Catherized urine 08/15/21 02:20 Urine Color Yellow (YELLOW) 08/15/21 02:20 Urine Appearance Cloudy (CLEAR) 08/15/21 02:20 Urine pH 6.0 (5.0 - 8.0) 08/15/21 02:20 Ur Specific [place] 1.020 (1.000-1.030) 08/15/21 02:20 Urine Protein Negative (NEGATIVE) 08/15/21 02:20 Urine Glucose (UA) Negative (NEGATIVE) 08/15/21 02:20 Urine Ketones Negative (NEGATIVE) 08/15/21 02:20 Urine Occult Blood 1+ (NEGATIVE) 08/15/21 02:20 Urine Nitrite Positive (NEGATIVE) 08/15/21 02:20 Urine Bilirubin Negative (NEGATIVE) 08/15/21 02:20 Urine Urobilinogen Normal (NORMAL) 08/15/21 02:20 Ur Leukocyte Esterase 3+ (NEGATIVE) 08/15/21 02:20 Urine RBC None seen /HPF (0-3) 08/15/21 02:20 Urine WBC 30-50 /HPF (0-5) A 08/15/21 02:20 Ur Squamous Epith Cells Rare /HPF (NEGATIVE) 08/15/21 02:20 Urine Bacteria 3+ /HPF (NEGATIVE) 08/15/21 02:20 Ur Culture Indicated? Yes/culture set up 08/15/21 02:20 SARS CoV-2 RNA Rapid ILDA Negative (NEGATIVE) 08/15/21 02:40 Plan (1) Anxiety: Status: Acute Plan: D/C Xanax and change to Klonopin. (2) Depression: Status: Acute Plan: Will cont. Cymbalta 30mg because of patients depression. (3) Chronic hyponatremia: Status: Acute Narrative Support Text: Improved since yesterday. Plan: NS IV. D/C Aripiprazole. (4) A-fib: Status: Acute Plan: Continue home meds. (5) HTN (hypertension): Status: Acute Plan: lisinopril 10mg daily.
[2021-08-16] MEDS ORDERED: ESTRADIOL 0.5 MG PO SCH (09:00)
[2021-08-16] MEDS ORDERED: VITAMIN D3 125 mcg (5,000 UNITS) PO SCH (09:00)
[2021-08-16] MEDS: CYMBALTA PO SCH (12:21)
[2021-08-16] MEDS: ZESTRIL TAB 10 MG PO SCH (12:21)
[2021-08-16] MEDS: KLONOPIN TAB 0.5 MG PO PRN (19:30)
[2021-08-16] MEDS: MELATONIN PO SCH (20:19)
[2021-08-16] MEDS: DIOVAN TAB 80 MG PO SCH (20:20)
[2021-08-16] MEDS: CARDIZEM CD 180 MG 24-HR PO SCH (20:20)
[2021-08-16] MEDS: LIPITOR TAB 20 MG PO SCH (20:21)
[2021-08-17] MEDS: NS 1000 ML 1,000 ML IV SCH (01:29)
[2021-08-17] MEDS: TYLENOL 325 MG TAB PO PRN (02:37)
[2021-08-17] MEDS: MYSOLINE TAB 250 MG PO SCH (05:44)
[2021-08-17] MEDS: REQUIP PO SCH (05:44)
[2021-08-17] MEDS: THERMOTABS PO SCH (05:44)
[2021-08-17 06:20] LABS: BASOPHILS % (AUTO) 0.7 % (0.2-1.0); EOSINOPHILS # (AUTO) 0.2 x10^3/uL (0.0-0.2); EOSINOPHILS % (AUTO) 4.4 % (0.9-2.9); HEMATOCRIT 32.1 % (36.0-47.0); HEMOGLOBIN 10.6 g/dL (12.0-16.0); LYMPHOCYTES # (AUTO) 1.1 X10^3/uL (1.3-2.9); LYMPHOCYTES % (AUTO) 25.3 % (21.0-51.0); MEAN CORPUSCULAR HEMOGLOBIN 28.4 pg (27.0-34.0); MEAN CORPUSCULAR HGB CONC 33.1 g/dL (33.0-35.0); MEAN CORPUSCULAR VOLUME 85.8 fL (80.0-100.0); MEAN PLATELET VOLUME 8.4 fL (7.4-11.0); MONOCYTES # (AUTO) 0.5 x10^3/uL (0.3-0.8); MONOCYTES % (AUTO) 10.5 % (0.0-13.0); NEUTROPHILS # (AUTO) 2.6 x10^3/uL (2.2-4.8); NEUTROPHILS % (AUTO) 59.1 % (42.0-75.0); PLATELET COUNT 213 X10^3/uL (150.0-450.0); RED BLOOD COUNT 3.74 X10^6/uL (3.5-5.4); RED CELL DISTRIBUTION WIDTH 16.6 % (11.6-16.5); WHITE BLOOD COUNT 4.3 X10^3/uL (3.6-10.0)
[2021-08-17 06:34] LABS: ALANINE AMINOTRANSFERASE 54 Units/L (12-78); ALBUMIN 2.3 g/dL (3.4-5.0); ALKALINE PHOSPHATASE 109 Units/L (46-116); ASPARTATE AMINO TRANSFERASE 51 Units/L (15-37); BLOOD UREA NITROGEN 4 mg/dL (7-18); CALCIUM 8.2 mg/dL (8.5-10.1); CARBON DIOXIDE 27.5 mmol/L (21-32); CHLORIDE 101 mmol/L (98-107); COR CA(FOR HYPOALB) 9.6 mg/dL (8.5-10.1); CREATININE 0.57 mg/dL (0.55-1.02); SODIUM 135 mmol/L (136-145); TOTAL PROTEIN 5.9 g/dL (6.4-8.2); eGFR NON BLACK RACES > 60 (>60)
--- NOTE | 2021-08-17 08:56 | W.DIS.FURT ---
Summary of Discharge Discharge Summary of Date Date of Exam: 08/17/21 Admission Date Date of Admission: 08/15/21 Admission Diagnosis Patient Problems (Updated 08/16/21 @ 08:58 by CARLO RAMIREZ) Acute hyponatremia (Acute) E87.1 Generalized weakness (Acute) R53.1 Hospital Course: The patients sodium level improved over the next 2 days following admission. Her UTI was treated with IV Rocephin and her Abilify was stopped since it can course Hyponatremia. Patients Sodium is 135 this am but she feels much better and is ready to go home. Vital Signs: Vital Signs (72 hours) 08/15/21 00:17 08/15/21 00:33 08/15/21 00:45 Temperature 97.8 F Pulse Rate 79 75 73 Pulse Rate [Left] Respiratory Rate 20 Blood Pressure 180/74 Blood Pressure [Left Arm] Blood Pressure [Right Arm] O2 Sat by Pulse Oximetry 98 96 97 08/15/21 01:00 08/15/21 01:01 08/15/21 01:15 Temperature Pulse Rate 73 73 73 Pulse Rate [Left] Respiratory Rate Blood Pressure 129/56 Blood Pressure [Left Arm] Blood Pressure [Right Arm] O2 Sat by Pulse Oximetry 96 95 93 L 08/15/21 01:30 08/15/21 01:45 08/15/21 02:00 Temperature Pulse Rate 73 74 75 Pulse Rate [Left] Respiratory Rate Blood Pressure 136/62 126/58 Blood Pressure [Left Arm] Blood Pressure [Right Arm] O2 Sat by Pulse Oximetry 93 L 92 L 92 L 08/15/21 02:15 08/15/21 02:26 08/15/21 02:30 Temperature Pulse Rate 75 74 70 Pulse Rate [Left] Respiratory Rate Blood Pressure 159/71 156/69 Blood Pressure [Left Arm] Blood Pressure [Right Arm] O2 Sat by Pulse Oximetry 97 98 98 08/15/21 02:52 08/15/21 03:52 08/15/21 04:00 Temperature 97.7 F Pulse Rate Pulse Rate [Left] 75 Respiratory Rate 20 20 20 Blood Pressure Blood Pressure [Left Arm] 155/66 Blood Pressure [Right Arm] O2 Sat by Pulse Oximetry 96 08/15/21 04:36 08/15/21 08:00 08/15/21 12:00 Temperature 97.7 F 97.8 F Pulse Rate Pulse Rate [Left] 80 73 Respiratory Rate 22 20 Blood Pressure Blood Pressure [Left Arm] 172/74 155/69 Blood Pressure [Right Arm] 156/68 O2 Sat by Pulse Oximetry 96 97 08/15/21 16:00 08/15/21 19:09 08/15/21 19:48 Temperature 98.6 F 98.0 F Pulse Rate Pulse Rate [Left] 78 82 Respiratory Rate 18 20 20 Blood Pressure Blood Pressure [Left Arm] 122/58 135/60 Blood Pressure [Right Arm] O2 Sat by Pulse Oximetry 95 93 L 08/15/21 20:09 08/16/21 00:00 08/16/21 02:19 Temperature 98.0 F Pulse Rate Pulse Rate [Left] 81 Respiratory Rate 20 20 20 Blood Pressure Blood Pressure [Left Arm] 141/66 Blood Pressure [Right Arm] O2 Sat by Pulse Oximetry 92 L 08/16/21 03:19 08/16/21 04:00 08/16/21 08:00 Temperature 97.8 F 97.9 F Pulse Rate Pulse Rate [Left] 80 74 Respiratory Rate 20 20 18 Blood Pressure Blood Pressure [Left Arm] 155/67 162/72 Blood Pressure [Right Arm] O2 Sat by Pulse Oximetry 92 L 97 08/16/21 08:47 08/16/21 09:47 08/16/21 12:00 Temperature 97.6 F Pulse Rate Pulse Rate [Left] 73 Respiratory Rate 20 20 18 Blood Pressure Blood Pressure [Left Arm] 192/78 Blood Pressure [Right Arm] O2 Sat by Pulse Oximetry 98 08/16/21 16:00 08/16/21 19:31 08/16/21 20:00 Temperature 98.5 F 97.6 F Pulse Rate Pulse Rate [Left] 74 81 Respiratory Rate 18 18 21 Blood Pressure Blood Pressure [Left Arm] 170/72 157/70 Blood Pressure [Right Arm] O2 Sat by Pulse Oximetry 97 97 08/16/21 20:20 08/16/21 20:31 08/16/21 21:20 Temperature Pulse Rate Pulse Rate [Left] Respiratory Rate 18 18 18 Blood Pressure Blood Pressure [Left Arm] Blood Pressure [Right Arm] O2 Sat by Pulse Oximetry 08/17/21 00:00 08/17/21 02:37 08/17/21 03:37 Temperature 98.0 F Pulse Rate Pulse Rate [Left] 80 Respiratory Rate 20 20 21 Blood Pressure Blood Pressure [Left Arm] 137/61 Blood Pressure [Right Arm] O2 Sat by Pulse Oximetry 94 L 08/17/21 04:00 Temperature 98.3 F Pulse Rate Pulse Rate [Left] 81 Respiratory Rate 20 Blood Pressure Blood Pressure [Left Arm] 134/61 Blood Pressure [Right Arm] O2 Sat by Pulse Oximetry 94 L Labs: Laboratory Last Values WBC 4.3 X10^3/uL (3.6-10.0) 08/17/21 05:48 RBC 3.74 X10^6/uL (3.5-5.4) 08/17/21 05:48 Hgb 10.6 g/dL (12.0-16.0) L 08/17/21 05:48 Hct 32.1 % (36.0-47.0) L 08/17/21 05:48 MCV 85.8 fL (80.0-100.0) 08/17/21 05:48 MCH 28.4 pg (27.0-34.0) 08/17/21 05:48 MCHC 33.1 g/dL (33.0-35.0) 08/17/21 05:48 RDW 16.6 % (11.6-16.5) H 08/17/21 05:48 Plt Count 213 X10^3/uL (150.0-450.0) 08/17/21 05:48 MPV 8.4 fL (7.4-11.0) 08/17/21 05:48 Neut % (Auto) 59.1 % (42.0-75.0) 08/17/21 05:48 Lymph % (Auto) 25.3 % (21.0-51.0) 08/17/21 05:48 [place] % (Auto) 10.5 % (0.0-13.0) 08/17/21 05:48 Eos % (Auto) 4.4 % (0.9-2.9) H 08/17/21 05:48 Baso % (Auto) 0.7 % (0.2-1.0) 08/17/21 05:48 Neut # (Auto) 2.6 x10^3/uL (2.2-4.8) 08/17/21 05:48 Lymph # (Auto) 1.1 X10^3/uL (1.3-2.9) L 08/17/21 05:48 [place] # (Auto) 0.5 x10^3/uL (0.3-0.8) 08/17/21 05:48 Eos # (Auto) 0.2 x10^3/uL (0.0-0.2) 08/17/21 05:48 Baso # (Auto) 0.0 X10^3/uL (0.0-0.1) 08/17/21 05:48 Absolute Nucleated RBC 0.1 /100WBC 08/17/21 05:48 Sodium 135 mmol/L (136-145) L 08/17/21 05:48 Corrected Sodium TNP 08/17/21 05:48 Potassium 3.5 mmol/L (3.5-5.1) 08/17/21 05:48 Chloride 101 mmol/L (98-107) 08/17/21 05:48 Carbon Dioxide 27.5 mmol/L (21-32) 08/17/21 05:48 BUN 4 mg/dL (7-18) L 08/17/21 05:48 Creatinine 0.57 mg/dL (0.55-1.02) 08/17/21 05:48 Est GFR (MDRD) Af Amer > 60 (>60) 08/17/21 05:48 Est GFR (MDRD) Non-Af > 60 (>60) 08/17/21 05:48 Glucose 90 mg/dL (65-99) 08/17/21 05:48 Calcium 8.2 mg/dL (8.5-10.1) L 08/17/21 05:48 Corrected Calcium 9.6 mg/dL (8.5-10.1) 08/17/21 05:48 Total Bilirubin 0.20 mg/dL (0.2-1.0) 08/17/21 05:48 AST 51 Units/L (15-37) H 08/17/21 05:48 ALT 54 Units/L (12-78) 08/17/21 05:48 Alkaline Phosphatase 109 Units/L (46-116) 08/17/21 05:48 Total Protein 5.9 g/dL (6.4-8.2) L 08/17/21 05:48 Albumin 2.3 g/dL (3.4-5.0) L 08/17/21 05:48 Globulin 3.6 g/dL (2.5-4.5) 08/17/21 05:48 Albumin/Globulin Ratio 0.6 Ratio (1.1-2.1) L 08/17/21 05:48 Specimen Type Catherized urine 08/15/21 02:20 Urine Color Yellow (YELLOW) 08/15/21 02:20 Urine Appearance Cloudy (CLEAR) 08/15/21 02:20 Urine pH 6.0 (5.0 - 8.0) 08/15/21 02:20 Ur Specific [place] 1.020 (1.000-1.030) 08/15/21 02:20 Urine Protein Negative (NEGATIVE) 08/15/21 02:20 Urine Glucose (UA) Negative (NEGATIVE) 08/15/21 02:20 Urine Ketones Negative (NEGATIVE) 08/15/21 02:20 Urine Occult Blood 1+ (NEGATIVE) 08/15/21 02:20 Urine Nitrite Positive (NEGATIVE) 08/15/21 02:20 Urine Bilirubin Negative (NEGATIVE) 08/15/21 02:20 Urine Urobilinogen Normal (NORMAL) 08/15/21 02:20 Ur Leukocyte Esterase 3+ (NEGATIVE) 08/15/21 02:20 Urine RBC None seen /HPF (0-3) 08/15/21 02:20 Urine WBC 30-50 /HPF (0-5) A 08/15/21 02:20 Ur Squamous Epith Cells Rare /HPF (NEGATIVE) 08/15/21 02:20 Urine Bacteria 3+ /HPF (NEGATIVE) 08/15/21 02:20 Ur Culture Indicated? Yes/culture set up 08/15/21 02:20 SARS CoV-2 RNA Rapid ILDA Negative (NEGATIVE) 08/15/21 02:40 Reason For Visit: hyponatremia, weakness Discharge Date Discharge Date: 08/17/21 Discharge Diagnosis All Active Problems (Updated 08/16/21 @ 08:58 by CARLO RAMIREZ) HTN (hypertension) (Acute) A-fib (Acute) Chronic hyponatremia (Acute) Depression (Acute) Anxiety (Acute) Acute hyponatremia (Acute) Chest pain (Acute) Generalized weakness (Acute) UTI (urinary tract infection) (Acute) Plan of Treatment: Continue with present treatment and follow up plan. Pt is to keep follow up appointment as instructed and take medications as ordered. Discharge Medications Discharge Medications: No Known Drug Allergies Allergy (Verified 07/25/21 17:45) CONTINUE taking the following medications Thermotabs 1 tab PO TID 08/15/21 [History] ferrous sulfate 325 mg PO BID 08/15/21 [History] multivitamin 1 tab PO QAM 08/15/21 [History] pioglitazone 15 mg PO DAILY 08/15/21 [History] senna 748 mg PO BID 08/15/21 [History] sod nlbxtied-pslmkfgzx-ddgnubo 1 tab PO TID 08/15/21 [History] tramadol 50 mg PO BID 08/15/21 [History] Discharge Disposition Discharge Disposition: Patient discharged home in stable codition. Discharge Plan Discharge Plan Hospital Course: The patients sodium level improved over the next 2 days following admission. Her UTI was treated with IV Rocephin and her Abilify was stopped since it can course Hyponatremia. Patients Sodium is 135 this am but she feels much better and is ready to go home. Patient Disposition: HOME HEALTH SERVICE Condition: Stable Health Concerns: Post Hospitalization: new medications and changes needed to prevent readmission or further decline. Pt educated and given instructions on all concerns. Care Plan Goals: Problem: Fluid Volume Deficit Goal: Maintain/Improved Adequate hydration. Instructions: Follow provided instructions. Follow up with primary physician as directed. Contact primary care physician or report to the closest Emergency Room if condition worsens. Plan of Treatment: Continue with present treatment and follow up plan. Pt is to keep follow up appointment as instructed and take medications as ordered. Prescriptions: Continued multivitamin Tablet 1 tab PO DAILY RF: 0 atorvastatin 20 mg Tablet 20 mg PO HS RF: 0 amiodarone 200 mg Tablet 200 mg PO DAILY RF: 0 potassium chloride 10 mEq Tablet Extended Release 10 meq PO DAILY RF: 0 alprazolam 0.5 mg Tablet 0.25 mg PO BID RF: 0 primidone 250 mg Tablet 250 mg PO TID RF: 0 pantoprazole 40 mg Tablet,Delayed Release (Dr/Ec) 40 mg PO DAILY RF: 0 ropinirole 0.5 mg Tablet 0.5 mg PO TID RF: 0 estradiol 0.5 mg Tablet 0.5 mg PO DAILY RF: 0 polyethylene glycol 3350 [Miralax] 17 gram/dose Powder 17 g PO DAILY PRN (Reason: Constipation) RF: 0 diltiazem HCl 180 mg Tablet Extended Release 24 Hr 180 mg PO HS RF: 0 cholecalciferol (vitamin D3) [Vitamin D3] 125 mcg (5,000 unit) Tablet 125 mcg PO DAILY RF: 0 melatonin 10 mg Tablet 10 mg PO HS RF: 0 Eliquis 2.5 mg Tablet 2.5 mg PO BID RF: 0 valsartan 80 mg Tablet 80 mg PO HS Qty: 30 RF: 1 duloxetine [Cymbalta] 30 mg Capsule,Delayed Release(Dr/Ec) 30 mg PO DAILY Qty: 30 RF: 1 multivitamin Tablet 1 tab PO QAM RF: 0 senna 374 mg Tablet 748 mg PO BID RF: 0 ferrous sulfate 325 mg (65 mg iron) Capsule, Extended Release 325 mg PO BID RF: 0 sod nddcpiii-bgqrwrkut-tzjyqzg Tablet 1 tab PO TID RF: 0 pioglitazone 15 mg tablet 15 mg PO DAILY RF: 0 Thermotabs 287-180-15 mg tablet 1 tab PO TID RF: 0 tramadol 50 mg tablet 50 mg PO BID RF: 0 Discontinued aripiprazole 5 mg Tablet 2.5 mg PO QNOON RF: 0 Follow ups/Referrals Follow ups/Referrals: NEMO PETTY [STAFF PHYSICIAN] - CARLO RAMIREZ [STAFF PHYSICIAN] - 08/24/21 10:00 am Instructions Instructions: Fall Prevention in the Home, Adult, [id number], Weakness, Qesh-gb-Blgd, Hypertension, Bzix-yp-Iwnt, Hyponatremia, Xaux-eu-Fmwg Stand Alone Forms: Excuse From Work or School, Precautions for COVID19, [facility], Patient Portal, Social Distancing
[2021-08-17] MEDS: [UNRECOGNIZED DRUG - OTHER] PO SCH (09:07)
[2021-08-17] MEDS: CORDARONE TAB 200 MG PO SCH (09:08)
[2021-08-17] MEDS: ACTOS PO SCH (09:08)
[2021-08-17] MEDS: FERROUS GLUCONATE PO SCH (09:09)
[2021-08-17] MEDS: ULTRAM PO SCH (09:09)
[2021-08-17] MEDS: PROTONIX TAB 40 MG PO SCH (09:11)
[2021-08-17] MEDS: ZESTRIL TAB 10 MG PO SCH (09:11)
[2021-08-17] MEDS: CYMBALTA PO SCH (09:12)
[2021-08-17] MEDS: ROCEPHIN 1 GRAM IV PREMIX 1 G/50 ML IV.SOLN. IV SCH (09:12)
[2021-08-17] MEDS: SENOKOT PO SCH (09:12)
[2021-08-17] MEDS: ESTRACE PO SCH (09:13)
[2021-08-17] MEDS: ELIQUIS PO SCH (09:13)
[2021-08-17 09:52] VITALS: BP 151/69
== END 2021-08-17 09:45 | disposition home health service (06) ==
LOC: ER 00:14 → INTOOBSV 03:20 → MED/SURG 03:20
PROVIDERS: ADMIT Family Medicine; ATTEND Family Medicine
DX: R26.89 Other abnormalities of gait and mobility; B96.29 Other Escherichia coli [E. coli] as the cause of diseases classified elsewhere; I10 Essential (primary) hypertension; E87.1 Hypo-osmolality and hyponatremia; I48.91 Unspecified atrial fibrillation; F32.89 Other specified depressive episodes; N39.0 Urinary tract infection, site not specified; R53.1 Weakness; Z20.822 Contact with and (suspected) exposure to COVID-19

== ENCOUNTER 2022-03-09 09:20 | Observation (INO) ==
[2022-03-09 09:52] VITALS: BMI 31.6
--- NOTE | 2022-03-09 10:25 | DR.DIZZY ---
HPI Time seen Time Seen by Provider: 03/09/22 10:07 PCP Primary Care Physician: Dr Macias HPI Comment HPI Comment: A 76 y/o female presenting via [facility] with weakness, her daughter would like her checked or admitted for the following: hx. of UTI, low Na., She recently completed a 7 day course of IV antibiotics at home. Complaint Chief Complaint:: Pt finished abx treatment for UTI yesterday, has been having continued weakness that has worsened in last 2 days, also having frequent falls. Pt denies any falls in last 24 hrs but states "I almost fell today". COVID-19 Coronavirus risk:travel/contact w/high risk person: No Has patient experienced Coronavirus symptoms: No Nurses Notes Reviewed Nurses Notes Review: Yes Source History Provided: Patient, Family Member and EMS Mode of Arrival Mode of Arrival: EMS Timing Onset of Chief Complaint: 03/06/22 Symptom Onset: Unknown Location of Weakness Weakness Location: Generalized Context History of: Anemia and DM Stroke Symptoms: None Associated signs and symptoms Associated Signs and Symptoms: Imbalance and Weak PMH PMH Past Medical History: Yes Past Medical History: Anemia, Diabetes, Dyslipidemia, GERD and Hypertension Past Medical History Comment: chronic UTI Past Surgical History: Yes Surgical History: Cholecystectomy, Hysterectomy and Ortho Surgery Family History History of Family Medical Conditions: Yes Family Medical History: Hypertension Social History Alcohol Use: None Do you use any recreational Drugs:: No Lives Where: Home Travel Risk Coronavirus risk:travel/contact w/high risk person: No Has patient experienced Coronavirus symptoms: No Infectious screening In the last 2 months have you had wt loss of >10#?: NO Have you had fever, night sweats or hemotysis?: No Have you traveled outside the country in the last 6 months?: No Isolation: Standard ROS Review of Systems Constitutional: Weakness Eyes: No Symptoms Reported ENTM: No Symptoms Reported Respiratoy: No Symptoms Reported Cardiovascular: No Symptoms Reported Gastrointestinal/Abdominal: No Symptoms Reported Genitourinary: No Symptoms Reported Neurological: No Symptoms Reported Musculoskeletal: No Symptoms Reported Integumentary: No Symptoms Reported Hematologic/Lymphatic: No Symptoms Reported Endocrine: No Symptoms Reported PE Vital Signs Vitals: Temperature 98.9 F Pulse Rate 71 Respiratory Rate 18 Blood Pressure [Left Arm] 140/58 Blood Pressure [Right Arm] 156/68 Blood Pressure 161/92 O2 Sat by Pulse Oximetry 95 General Limitations: No Limitations General Appearance: Alert and In No Apparent Distress Head Head Exam: Normal Inspection, Atraumatic and Normocephalic Eyes Eye exam: Normal Appearance and EOMI ENT ENT Exam: Normal Exam, Normal Oropharynx, Normal External Ear Exam and Mucous Membranes Moist Neck Neck Exam: Normal Inspection, Full ROM and Trachea Midline Chest Chest Inspection: Normal Inspection and Symmetric Chest Wall Rise Respiratory Respiratory Exam: Normal Lung Sounds Bilat Cardiovascular Cardiovascular Exam: Irregular Rhythm, Normal Heart Sounds, +S1 and +S2 Abdominal Exam Abdominal Exam: Normal Inspection, Normal Bowel Sounds and Soft Rectal Rectal Exam: Deferred Extremeties Extremities Exam: Normal Inspection and Full ROM Back Back Exam: Normal Inspection and Full ROM Neurologic Neurological Exam: Alert Psychiatric Psychiatric Exam: Normal Affect and Normal Mood Skin Skin Exam: Intact COURSE Treatment Treatment: I spoke with pt. and her daughter & grand-daughter. She will be sent home on oral antibiotics pending urine c/s. Reevaluation 1st: Unchanged Education/Counseling Education/Counseling: Patient, Family, Education and Counseling Educated On: Treatment, Diagnosis, Prognosis and Needs for Follow Up ROR Labs Reviewed Laboratory Results Reviewed?: Yes Result Diagrams: 03/09/22 10:35 03/09/22 10:35 Laboratory: WBC 5.0 X10^3/uL (3.6-10.0) 03/09/22 10:35 RBC 4.21 X10^6/uL (3.5-5.4) 03/09/22 10:35 Hgb 13.3 g/dL (12.0-16.0) 03/09/22 10:35 Hct 39.0 % (36.0-47.0) 03/09/22 10:35 MCV 92.8 fL (80.0-100.0) 03/09/22 10:35 MCH 31.6 pg (27.0-34.0) 03/09/22 10:35 MCHC 34.1 g/dL (33.0-35.0) 03/09/22 10:35 RDW 14.0 % (11.6-16.5) 03/09/22 10:35 Plt Count 195 X10^3/uL (150.0-450.0) 03/09/22 10:35 MPV 8.8 fL (7.4-11.0) 03/09/22 10:35 Neut % (Auto) 68.8 % (42.0-75.0) 03/09/22 10:35 Lymph % (Auto) 21.0 % (21.0-51.0) 03/09/22 10:35 [place] % (Auto) 7.3 % (0.0-13.0) 03/09/22 10:35 Eos % (Auto) 1.8 % (0.9-2.9) 03/09/22 10:35 Baso % (Auto) 1.1 % (0.2-1.0) H 03/09/22 10:35 Neut # (Auto) 3.5 x10^3/uL (2.2-4.8) 03/09/22 10:35 Lymph # (Auto) 1.1 X10^3/uL (1.3-2.9) L 03/09/22 10:35 [place] # (Auto) 0.4 x10^3/uL (0.3-0.8) 03/09/22 10:35 Eos # (Auto) 0.1 x10^3/uL (0.0-0.2) 03/09/22 10:35 Baso # (Auto) 0.1 X10^3/uL (0.0-0.1) 03/09/22 10:35 Absolute Nucleated RBC 0.0 /100WBC 03/09/22 10:35 Sodium 138 mmol/L (136-145) 03/09/22 10:35 Corrected Sodium TNP 03/09/22 10:35 Potassium 3.7 mmol/L (3.5-5.1) 03/09/22 10:35 Chloride 102 mmol/L (98-107) 03/09/22 10:35 Carbon Dioxide 29.1 mmol/L (21-32) 03/09/22 10:35 BUN 13 mg/dL (7-18) 03/09/22 10:35 Creatinine 0.88 mg/dL (0.55-1.02) 03/09/22 10:35 Est GFR (MDRD) Af Amer > 60 (>60) 03/09/22 10:35 Est GFR (MDRD) Non-Af > 60 (>60) 03/09/22 10:35 Glucose 96 mg/dL (65-99) 03/09/22 10:35 Calcium 9.0 mg/dL (8.5-10.1) 03/09/22 10:35 Corrected Calcium TNP 03/09/22 10:35 Total Bilirubin 0.50 mg/dL (0.2-1.0) 03/09/22 10:35 AST 31 Units/L (15-37) 03/09/22 10:35 ALT 27 Units/L (12-78) 03/09/22 10:35 Alkaline Phosphatase 125 Units/L (46-116) H 03/09/22 10:35 Creatine Kinase 311 Units/L (26-192) H 03/09/22 10:35 CK-MB (CK-2) < 1.0 ng/mL (0-4.0) 03/09/22 10:35 CK/CKMB % Calc 0.3 % (<4) 03/09/22 10:35 Troponin I High Sens 16.6 ng/L (4.0-60.0) 03/09/22 10:35 Total Protein 7.5 g/dL (6.4-8.2) 03/09/22 10:35 Albumin 3.6 g/dL (3.4-5.0) 03/09/22 10:35 Globulin 3.9 g/dL (2.5-4.5) 03/09/22 10:35 Albumin/Globulin Ratio 0.9 Ratio (1.1-2.1) L 03/09/22 10:35 TSH 3rd Generation 2.364 uIU/mL (0.358-3.74) 03/09/22 10:35 Specimen Type Catherized urine 03/09/22 11:49 Urine Color Yellow (YELLOW) 03/09/22 11:49 Urine Appearance Hazy (CLEAR) 03/09/22 11:49 Urine pH 6.0 (5.0 - 8.0) 03/09/22 11:49 Ur Specific [place] 1.020 (1.000-1.030) 03/09/22 11:49 Urine Protein 2+ (NEGATIVE) 03/09/22 11:49 Urine Glucose (UA) Negative (NEGATIVE) 03/09/22 11:49 Urine Ketones Negative (NEGATIVE) 03/09/22 11:49 Urine Blood 1+ (NEGATIVE) 03/09/22 11:49 Urine Nitrite Negative (NEGATIVE) 03/09/22 11:49 Urine Bilirubin 3+ (NEGATIVE) 03/09/22 11:49 Urine Urobilinogen Normal (NORMAL) 03/09/22 11:49 Ur Leukocyte Esterase 2+ (NEGATIVE) 03/09/22 11:49 Urine RBC 0-2 /HPF (0-3) 03/09/22 11:49 Urine WBC 5-10 /HPF (0-5) A 03/09/22 11:49 Ur Squamous Epith Cells Many /HPF (NEGATIVE) 03/09/22 11:49 Urine Bacteria Trace /HPF (NEGATIVE) 03/09/22 11:49 Urine Mucus Many /HPF (NEGATIVE) 03/09/22 11:49 Urine Yeast Few /HPF (NEGATIVE) 03/09/22 11:49 Ur Culture Indicated? Yes/culture set up 03/09/22 11:49 EKG Rate: 72 [place]: Normal Rhythm: NSR Block: None Hypertrophy: None ST: Normal Opioid Opioid Risk Tool Age (Nas box if 16-45): No History of Preadolescent Sexual Abuse: No Total: 0 Total Score Risk Category: Low Risk Copyright: Josesito GALAN predicting aberrant behaviors Diagnosis Discharge Problem: Recurrent urticaria UTI (urinary tract infection) Qualifiers: Urinary tract infection type: acute cystitis Hematuria presence: without hematuria Qualified Code(s): N30.00 - Acute cystitis without hematuria Instructions Instructions: Urinary Tract Infection, Adult, Pzht-[id number]-[id number] Forms: Precautions for COVID19 [facility] Patient Portal Social Distancing
[2022-03-09 10:48] LABS: BASOPHILS # (AUTO) 0.1 X10^3/uL (0.0-0.1); BASOPHILS % (AUTO) 1.1 % (0.2-1.0); EOSINOPHILS # (AUTO) 0.1 x10^3/uL (0.0-0.2); EOSINOPHILS % (AUTO) 1.8 % (0.9-2.9); HEMOGLOBIN 13.3 g/dL (12.0-16.0); LYMPHOCYTES # (AUTO) 1.1 X10^3/uL (1.3-2.9); MEAN CORPUSCULAR HEMOGLOBIN 31.6 pg (27.0-34.0); MEAN CORPUSCULAR HGB CONC 34.1 g/dL (33.0-35.0); MEAN CORPUSCULAR VOLUME 92.8 fL (80.0-100.0); MEAN PLATELET VOLUME 8.8 fL (7.4-11.0); MONOCYTES # (AUTO) 0.4 x10^3/uL (0.3-0.8); MONOCYTES % (AUTO) 7.3 % (0.0-13.0); NEUTROPHILS # (AUTO) 3.5 x10^3/uL (2.2-4.8); NEUTROPHILS % (AUTO) 68.8 % (42.0-75.0); RED BLOOD COUNT 4.21 X10^6/uL (3.5-5.4)
[2022-03-09 11:13] LABS: ALANINE AMINOTRANSFERASE 27 Units/L (12-78); ALBUMIN 3.6 g/dL (3.4-5.0); ALKALINE PHOSPHATASE 125 Units/L (46-116); ASPARTATE AMINO TRANSFERASE 31 Units/L (15-37); BLOOD UREA NITROGEN 13 mg/dL (7-18); CARBON DIOXIDE 29.1 mmol/L (21-32); CHLORIDE 102 mmol/L (98-107); CKMB % 0.3 % (<4); CREATINE KINASE 311 Units/L (26-192); CREATINE KINASE MB < 1.0 ng/mL (0-4.0); CREATININE 0.88 mg/dL (0.55-1.02); SODIUM 138 mmol/L (136-145); TOTAL PROTEIN 7.5 g/dL (6.4-8.2); TSH (3RD GENERATION) 2.364 uIU/mL (0.358-3.74); eGFR NON BLACK RACES > 60 (>60)
[2022-03-09] MEDS ORDERED: CATAPRES TAB 0.1 MG ONE (11:48)
--- NOTE | 2022-03-09 11:57 | RAD ---
HISTORYWEAKNESS, Pt finished abx treatment for UTI yesterday, has been having continued weakness that has worsened in last 2 days, also having frequent falls. Pt denies any falls in last 24 hrs but states "I almost fell today"STUDYCHEST, 1 [id number]/29/2021.TECHNIQUEAP view of the chestFINDINGSThe cardiac and mediastinal contours are within normal limits. The lungs are clear without focal consolidation or segmental collapse. No pleural effusion or pneumothorax.IMPRESSIONNo acute pulmonary process.Electronically signed by: Ashkan Haywood (March 09, 2022 11:55:49)
[2022-03-09 12:20] LABS: BILIRUBIN,URINE 3+ (NEGATIVE); BLOOD/HEMOGLOBIN,URINE 1+ (NEGATIVE); GLUCOSE, URINE NEGATIVE (NEGATIVE); KETONES,URINE NEGATIVE (NEGATIVE); LEUKOCYTE ESTERASE ,URINE 2+ (NEGATIVE); NITRITES,URINE NEGATIVE (NEGATIVE); PROTEIN,URINE 2+ (NEGATIVE); UROBILINOGEN,URINE NORMAL (NORMAL)
[2022-03-09] MEDS ORDERED: CATAPRES TAB 0.1 MG PO ONE (12:23)
[2022-03-09 12:28] LABS: APPEARANCE,URINE HAZY (CLEAR); COLOR,URINE YELLOW (YELLOW)
[2022-03-09 12:29] LABS: BACTERIA,URINE TRACE /HPF (NEGATIVE); RBC,URINE 0-2 /HPF (0-3); SQUAMOUS EPITHELIAL CELL,UR MANY /HPF (NEGATIVE); YEAST,URINE FEW /HPF (NEGATIVE)
[2022-03-09] MEDS ORDERED: LEVAQUIN TAB 500 MG PO ONE (13:28)
[2022-03-09] MEDS ORDERED: LEVAQUIN TAB 500 MG ONE (13:38)
[2022-03-09] MEDS: DIOVAN TAB 160 MG PO SCH (21:49)
[2022-03-09] MEDS: PROzac PO SCH (21:49)
[2022-03-09] MEDS: REQUIP PO SCH (21:49)
[2022-03-09] MEDS: ELIQUIS PO SCH (21:49)
[2022-03-09] MEDS: ULTRAM PO PRN (21:54)
[2022-03-10 06:09] LABS: BASOPHILS % (AUTO) 0.5 % (0.2-1.0); EOSINOPHILS # (AUTO) 0.1 x10^3/uL (0.0-0.2); EOSINOPHILS % (AUTO) 1.3 % (0.9-2.9); HEMATOCRIT 36.7 % (36.0-47.0); HEMOGLOBIN 12.7 g/dL (12.0-16.0); LYMPHOCYTES # (AUTO) 0.9 X10^3/uL (1.3-2.9); LYMPHOCYTES % (AUTO) 13.5 % (21.0-51.0); MEAN CORPUSCULAR HGB CONC 34.6 g/dL (33.0-35.0); MEAN CORPUSCULAR VOLUME 92.3 fL (80.0-100.0); MEAN PLATELET VOLUME 9.1 fL (7.4-11.0); MONOCYTES # (AUTO) 0.5 x10^3/uL (0.3-0.8); MONOCYTES % (AUTO) 7.7 % (0.0-13.0); NEUTROPHILS # (AUTO) 4.9 x10^3/uL (2.2-4.8); RED BLOOD COUNT 3.98 X10^6/uL (3.5-5.4); RED CELL DISTRIBUTION WIDTH 13.5 % (11.6-16.5); WHITE BLOOD COUNT 6.3 X10^3/uL (3.6-10.0)
[2022-03-10 06:29] LABS: ALANINE AMINOTRANSFERASE 22 Units/L (12-78); ALBUMIN 3.1 g/dL (3.4-5.0); ALKALINE PHOSPHATASE 111 Units/L (46-116); ASPARTATE AMINO TRANSFERASE 27 Units/L (15-37); BLOOD UREA NITROGEN 12 mg/dL (7-18); CALCIUM 8.5 mg/dL (8.5-10.1); CHLORIDE 101 mmol/L (98-107); COR CA(FOR HYPOALB) 9.2 mg/dL (8.5-10.1); CREATININE 0.83 mg/dL (0.55-1.02); SODIUM 138 mmol/L (136-145); TOTAL PROTEIN 6.8 g/dL (6.4-8.2); eGFR NON BLACK RACES > 60 (>60)
[2022-03-10] MEDS: ELIQUIS PO SCH ×2 (09:11→21:10)
[2022-03-10] MEDS: PROTONIX TAB 40 MG PO SCH (09:11)
[2022-03-10] MEDS: CORDARONE TAB 200 MG PO SCH (09:11)
[2022-03-10] MEDS: PROzac PO SCH ×2 (09:12→21:10)
[2022-03-10] MEDS: SEROquel TAB 25 mg PO SCH ×2 (09:55→21:10)
[2022-03-10] MEDS: VALIUM PO PRN (15:07)
--- NOTE | 2022-03-10 16:29 | DR.H&P ---
H&P History & Physical for Day of: H&P Date: 03/09/22 Chief Complaint Chief Complaint: Weakness and falling Allergies Allergies Allergy/AdvReac Type Severity Reaction Status Date / Time No Known Drug Allergies Allergy Verified 12/19/21 09:16 History of Present Illness History of Present Illness: This is a 76-year-old white female who presented to the emergency department yesterday [facility]. Her daughter accompanied her and reported that she had been having increased falling and confusion over the last couple of days. Just recently finished a 14 day course of intravenous antibiotics for multidrug-resistant UTI secondary to E. coli and Enterococcus faecalis. Her daughter reports that she has been having increased weakness and is barely able to ambulate and can no longer use the bathroom on her own without assistance. Past Medical History Past Medical History: Anemia, Diabetes, Dyslipidemia, GERD and Hypertension Additional Medical History: A-Fib, dementia, generalized weakness, nonambulatory Past Surgical History Surgical History: Cholecystectomy, Hysterectomy and Ortho Surgery Family History Family Medical History: Coronary Artery Disease and Hypertension Social History Does patient currently use any type of tobacco product: No Have you used tobacco products in the last 12 months: No Type of Tobacco Use: None Alcohol Use: None Drug Use: None Medications Home Medications: No Known Drug Allergies Allergy (Verified 12/19/21 09:16) CONTINUE taking the following medications cetirizine 10 mg PO DAILY 03/09/22 [History] etodolac 200 mg PO BID 03/09/22 [History] fluoxetine 40 mg PO BID 03/09/22 [History] primidone 250 mg PO TID 03/09/22 [History] valsartan 160 mg PO HS 03/09/22 [History] New Prescriptions amoxicillin-pot clavulanate [Augmentin] 1 tab PO Q12H #10 tab 03/09/22 [Rx] Labs Result Diagrams: 03/10/22 05:26 03/10/22 05:26 Labs: 03/09/22 11:49 Urine,Catheterized Urine Culture - Preliminary Laboratory WBC 6.3 X10^3/uL (3.6-10.0) 03/10/22 05:26 RBC 3.98 X10^6/uL (3.5-5.4) 03/10/22 05:26 Hgb 12.7 g/dL (12.0-16.0) 03/10/22 05:26 Hct 36.7 % (36.0-47.0) 03/10/22 05:26 MCV 92.3 fL (80.0-100.0) 03/10/22 05:26 MCH 32.0 pg (27.0-34.0) 03/10/22 05:26 MCHC 34.6 g/dL (33.0-35.0) 03/10/22 05:26 RDW 13.5 % (11.6-16.5) 03/10/22 05:26 Plt Count 174 X10^3/uL (150.0-450.0) 03/10/22 05:26 MPV 9.1 fL (7.4-11.0) 03/10/22 05:26 Neut % (Auto) 77.0 % (42.0-75.0) H 03/10/22 05:26 Lymph % (Auto) 13.5 % (21.0-51.0) L 03/10/22 05:26 [place] % (Auto) 7.7 % (0.0-13.0) 03/10/22 05:26 Eos % (Auto) 1.3 % (0.9-2.9) 03/10/22 05:26 Baso % (Auto) 0.5 % (0.2-1.0) 03/10/22 05:26 Neut # (Auto) 4.9 x10^3/uL (2.2-4.8) H 03/10/22 05:26 Lymph # (Auto) 0.9 X10^3/uL (1.3-2.9) L 03/10/22 05:26 [place] # (Auto) 0.5 x10^3/uL (0.3-0.8) 03/10/22 05:26 Eos # (Auto) 0.1 x10^3/uL (0.0-0.2) 03/10/22 05:26 Baso # (Auto) 0.0 X10^3/uL (0.0-0.1) 03/10/22 05:26 Absolute Nucleated RBC 0.1 /100WBC 03/10/22 05:26 Sodium 138 mmol/L (136-145) 03/10/22 05:26 Corrected Sodium TNP 03/10/22 05:26 Potassium 3.7 mmol/L (3.5-5.1) 03/10/22 05:26 Chloride 101 mmol/L (98-107) 03/10/22 05:26 Carbon Dioxide 27.0 mmol/L (21-32) 03/10/22 05:26 BUN 12 mg/dL (7-18) 03/10/22 05:26 Creatinine 0.83 mg/dL (0.55-1.02) 03/10/22 05:26 Est GFR (MDRD) Af Amer > 60 (>60) 03/10/22 05:26 Est GFR (MDRD) Non-Af > 60 (>60) 03/10/22 05:26 Glucose 76 mg/dL (65-99) 03/10/22 05:26 Calcium 8.5 mg/dL (8.5-10.1) 03/10/22 05:26 Corrected Calcium 9.2 mg/dL (8.5-10.1) 03/10/22 05:26 Total Bilirubin 0.60 mg/dL (0.2-1.0) 03/10/22 05:26 AST 27 Units/L (15-37) 03/10/22 05:26 ALT 22 Units/L (12-78) 03/10/22 05:26 Alkaline Phosphatase 111 Units/L (46-116) 03/10/22 05:26 Creatine Kinase 311 Units/L (26-192) H 03/09/22 10:35 CK-MB (CK-2) < 1.0 ng/mL (0-4.0) 03/09/22 10:35 CK/CKMB % Calc 0.3 % (<4) 03/09/22 10:35 Troponin I High Sens 16.6 ng/L (4.0-60.0) 03/09/22 10:35 Total Protein 6.8 g/dL (6.4-8.2) 03/10/22 05:26 Albumin 3.1 g/dL (3.4-5.0) L 03/10/22 05:26 Globulin 3.7 g/dL (2.5-4.5) 03/10/22 05:26 Albumin/Globulin Ratio 0.8 Ratio (1.1-2.1) L 03/10/22 05:26 TSH 3rd Generation 2.364 uIU/mL (0.358-3.74) 03/09/22 10:35 Specimen Type Catherized urine 03/09/22 11:49 Urine Color Yellow (YELLOW) 03/09/22 11:49 Urine Appearance Hazy (CLEAR) 03/09/22 11:49 Urine pH 6.0 (5.0 - 8.0) 03/09/22 11:49 Ur Specific [place] 1.020 (1.000-1.030) 03/09/22 11:49 Urine Protein 2+ (NEGATIVE) 03/09/22 11:49 Urine Glucose (UA) Negative (NEGATIVE) 03/09/22 11:49 Urine Ketones Negative (NEGATIVE) 03/09/22 11:49 Urine Blood 1+ (NEGATIVE) 03/09/22 11:49 Urine Nitrite Negative (NEGATIVE) 03/09/22 11:49 Urine Bilirubin 3+ (NEGATIVE) 03/09/22 11:49 Urine Urobilinogen Normal (NORMAL) 03/09/22 11:49 Ur Leukocyte Esterase 2+ (NEGATIVE) 03/09/22 11:49 Urine RBC 0-2 /HPF (0-3) 03/09/22 11:49 Urine WBC 5-10 /HPF (0-5) A 03/09/22 11:49 Ur Squamous Epith Cells Many /HPF (NEGATIVE) 03/09/22 11:49 Urine Bacteria Trace /HPF (NEGATIVE) 03/09/22 11:49 Urine Mucus Many /HPF (NEGATIVE) 03/09/22 11:49 Urine Yeast Few /HPF (NEGATIVE) 03/09/22 11:49 Ur Culture Indicated? Yes/culture set up 03/09/22 11:49 Review of Systems Constitutional: Weakness Eyes: No Symptoms Reported ENT: No Symptoms Reported Respiratory: No Symptoms Reported Cardiovascular: No Symptoms Reported Gastrointestinal: No Symptoms Reported Genitourinary: No Symptoms Reported Musculoskeletal: Back Pain and Leg Pain Skin: No Symptoms Reported Neurological: No Symptoms Reported Physical Exam Vital Signs: Temperature 98.1 F Pulse Rate [Left Radial] 94 Pulse Rate 75 Respiratory Rate 20 Blood Pressure [Left Arm] 162/74 Blood Pressure [Right Arm] 156/68 Blood Pressure 178/74 O2 Sat by Pulse Oximetry 92 Oriented: Normal, Time, Person and Place Eyes: Normal Ear: Normal Nose: Normal Throat: Normal Respiratory: Clear Throughout Cardiovascular: Normal : Normal Auscultation: Bowel Sounds: Normal Palpation: Normal Tenderness: Normal Skin: Normal Musculoskeletal: Left, Leg and Back:Lumbar Psychiatric: Anxiety, Depression and Agitation Mood Description: Sad and Anxious Affect: Anxious and Depressed Speech Pattern: Clear Assessment/Plan (1) Falling: Narrative Support Text: The patient had blood work done in the ER that did not reveal any problems at this time. CBC, CMP were within normal limits. A urinalysis was done that showed only 5-10 white blood cells per high-power field and trace amount of bacteria. A culture is sent off and we will put her in observation inpatient status and watch her overnight says she is doing. Status: Acute Plan: Admit for inpatient or observation status. (2) Anxiety: Status: Acute (3) Generalized weakness: Status: Acute (4) HTN (hypertension): Status: Acute Plan: Resume home meds. (5) A-fib: Status: Acute Plan: Resume home meds (6) Depression: Status: Acute (7) Lower back pain: Qualifiers: Back pain laterality: bilateral Chronicity: acute Sciatica presence: without sciatica Qualified Code(s): M54.50 - Low back pain, unspecified Status: Acute Review H&P Reviewed: Yes Patient was examined?: Yes
--- NOTE | 2022-03-10 16:49 | PCM.PROG ---
Progress Note Progress Note for Day of Date of Exam: 03/10/22 Subjective Subjective: The patient is seen and examined this morning. She is trying to explain things but is having great difficulty trying to say what she wants to get out. According to her daughter her confusion has gotten worse over the last weeks and the patient has clear evidence of dementia at this time. Repeat labs this morning are within normal limits. I discussed with the patient that she [place] but she states that she will not go [place] a [place]. I recommended that she go to a [place] for inpatient rehab to help build up her strength she still refuses this as well. One of the patient's daughters is here this morning and suggest hospice at home but she does not have any terminal illnesses at this time. However that the dementia may qualify her for at home hospice. I think the family needs to get together and discuss the patient's future care along with the patient and make a decision on what they would like us to do. Past Medical Family Social History Past Med/Fam/Surg Hx: No changes since H&P Allergies: Allergies No Known Drug Allergies Allergy (Verified 12/19/21 09:16) Review of Systems ROS: No change since H&P Vital Signs and I&O's Vital Signs: Temperature 98.1 F Pulse Rate [Left Radial] 94 Pulse Rate 75 Respiratory Rate 20 Blood Pressure [Left Arm] 162/74 Blood Pressure [Right Arm] 156/68 Blood Pressure 178/74 O2 Sat by Pulse Oximetry 92 Intake and Output: Intake & Output 03/08/22 03/09/22 03/10/22 03/11/22 11:59 11:59 11:59 11:59 Intake Total 580 / 580 360 / 360 Balance 580 / 580 360 / 360 Physical Exam Oriented: Normal, Time, Person and Place Eyes: Normal Ear: Normal Nose: Normal Throat: Normal Respiratory: Normal Cardiovascular: Normal : Normal Auscultation: Bowel Sounds: Normal Tenderness: Normal Skin: Normal Musculoskeletal: Left, Leg and Back:Lumbar Psychiatric: Anxiety, Depression and Agitation Mood Description: Sad and Anxious Affect: Anxious and Depressed Speech Pattern: Clear Laboratory and Diagnostics Result Diagrams: 03/10/22 05:26 03/10/22 05:26 Labs: 03/09/22 11:49 Urine,Catheterized Urine Culture - Preliminary Laboratory WBC 6.3 X10^3/uL (3.6-10.0) 03/10/22 05:26 RBC 3.98 X10^6/uL (3.5-5.4) 03/10/22 05:26 Hgb 12.7 g/dL (12.0-16.0) 03/10/22 05:26 Hct 36.7 % (36.0-47.0) 03/10/22 05:26 MCV 92.3 fL (80.0-100.0) 03/10/22 05:26 MCH 32.0 pg (27.0-34.0) 03/10/22 05:26 MCHC 34.6 g/dL (33.0-35.0) 03/10/22 05:26 RDW 13.5 % (11.6-16.5) 03/10/22 05:26 Plt Count 174 X10^3/uL (150.0-450.0) 03/10/22 05:26 MPV 9.1 fL (7.4-11.0) 03/10/22 05:26 Neut % (Auto) 77.0 % (42.0-75.0) H 03/10/22 05:26 Lymph % (Auto) 13.5 % (21.0-51.0) L 03/10/22 05:26 [place] % (Auto) 7.7 % (0.0-13.0) 03/10/22 05:26 Eos % (Auto) 1.3 % (0.9-2.9) 03/10/22 05:26 Baso % (Auto) 0.5 % (0.2-1.0) 03/10/22 05:26 Neut # (Auto) 4.9 x10^3/uL (2.2-4.8) H 03/10/22 05:26 Lymph # (Auto) 0.9 X10^3/uL (1.3-2.9) L 03/10/22 05:26 [place] # (Auto) 0.5 x10^3/uL (0.3-0.8) 03/10/22 05:26 Eos # (Auto) 0.1 x10^3/uL (0.0-0.2) 03/10/22 05:26 Baso # (Auto) 0.0 X10^3/uL (0.0-0.1) 03/10/22 05:26 Absolute Nucleated RBC 0.1 /100WBC 03/10/22 05:26 Sodium 138 mmol/L (136-145) 03/10/22 05:26 Corrected Sodium TNP 03/10/22 05:26 Potassium 3.7 mmol/L (3.5-5.1) 03/10/22 05:26 Chloride 101 mmol/L (98-107) 03/10/22 05:26 Carbon Dioxide 27.0 mmol/L (21-32) 03/10/22 05:26 BUN 12 mg/dL (7-18) 03/10/22 05:26 Creatinine 0.83 mg/dL (0.55-1.02) 03/10/22 05:26 Est GFR (MDRD) Af Amer > 60 (>60) 03/10/22 05:26 Est GFR (MDRD) Non-Af > 60 (>60) 03/10/22 05:26 Glucose 76 mg/dL (65-99) 03/10/22 05:26 Calcium 8.5 mg/dL (8.5-10.1) 03/10/22 05:26 Corrected Calcium 9.2 mg/dL (8.5-10.1) 03/10/22 05:26 Total Bilirubin 0.60 mg/dL (0.2-1.0) 03/10/22 05:26 AST 27 Units/L (15-37) 03/10/22 05:26 ALT 22 Units/L (12-78) 03/10/22 05:26 Alkaline Phosphatase 111 Units/L (46-116) 03/10/22 05:26 Creatine Kinase 311 Units/L (26-192) H 03/09/22 10:35 CK-MB (CK-2) < 1.0 ng/mL (0-4.0) 03/09/22 10:35 CK/CKMB % Calc 0.3 % (<4) 03/09/22 10:35 Troponin I High Sens 16.6 ng/L (4.0-60.0) 03/09/22 10:35 Total Protein 6.8 g/dL (6.4-8.2) 03/10/22 05:26 Albumin 3.1 g/dL (3.4-5.0) L 03/10/22 05:26 Globulin 3.7 g/dL (2.5-4.5) 03/10/22 05: Albumin/Globulin Ratio 0.8 Ratio (1.1-2.1) L 03/10/22 05:26 TSH 3rd Generation 2.364 uIU/mL (0.358-3.74) 03/09/22 10:35 Specimen Type Catherized urine 03/09/22 11:49 Urine Color Yellow (YELLOW) 03/09/22 11:49 Urine Appearance Hazy (CLEAR) 03/09/22 11:49 Urine pH 6.0 (5.0 - 8.0) 03/09/22 11:49 Ur Specific [place] 1.020 (1.000-1.030) 03/09/22 11:49 Urine Protein 2+ (NEGATIVE) 03/09/22 11:49 Urine Glucose (UA) Negative (NEGATIVE) 03/09/22 11:49 Urine Ketones Negative (NEGATIVE) 03/09/22 11:49 Urine Blood 1+ (NEGATIVE) 03/09/22 11:49 Urine Nitrite Negative (NEGATIVE) 03/09/22 11:49 Urine Bilirubin 3+ (NEGATIVE) 03/09/22 11:49 Urine Urobilinogen Normal (NORMAL) 03/09/22 11:49 Ur Leukocyte Esterase 2+ (NEGATIVE) 03/09/22 11:49 Urine RBC 0-2 /HPF (0-3) 03/09/22 11:49 Urine WBC 5-10 /HPF (0-5) A 03/09/22 11:49 Ur Squamous Epith Cells Many /HPF (NEGATIVE) 03/09/22 11:49 Urine Bacteria Trace /HPF (NEGATIVE) 03/09/22 11:49 Urine Mucus Many /HPF (NEGATIVE) 03/09/22 11:49 Urine Yeast Few /HPF (NEGATIVE) 03/09/22 11:49 Ur Culture Indicated? Yes/culture set up 03/09/22 11:49 Plan (1) Dementia: Status: Acute Plan: I will follow up with the urine culture when available to see if she has underlying urinary tract infection causing her to be confused. In the meantime I am waiting for the family to come up with a decision with what they want to do with the patient regarding her future care. (2) Impaired ambulation: Status: Acute Plan: We will obtain a PT consult for evaluation and treatment. (3) Falling: Status: Acute Plan: Admit for inpatient or observation status. (4) Anxiety: Status: Acute (5) Generalized weakness: Status: Acute (6) HTN (hypertension): Status: Acute Plan: Resume home meds. (7) A-fib: Status: Acute Plan: Resume home meds (8) Depression: Status: Acute (9) Lower back pain: Status: Acute Qualifiers: Back pain laterality: bilateral Chronicity: acute Sciatica presence: without sciatica Qualified Code(s): M54.50 - Low back pain, unspecified
[2022-03-10] MEDS: INVanz INJ 1 GRAM VIAL 1 G in NS 100 ML IV 100 ML IV SCH (17:42)
[2022-03-10] MEDS: REQUIP PO SCH (21:10)
[2022-03-10] MEDS: ULTRAM PO PRN (21:10)
[2022-03-10] MEDS: DIOVAN TAB 160 MG PO SCH (21:10)
[2022-03-11] MEDS: VALIUM PO PRN (01:03)
[2022-03-11] MEDS: ELIQUIS PO SCH (09:37)
[2022-03-11] MEDS: SEROquel TAB 25 mg PO SCH (09:37)
[2022-03-11] MEDS: CORDARONE TAB 200 MG PO SCH (09:37)
[2022-03-11] MEDS: PROzac PO SCH (09:37)
[2022-03-11] MEDS: PROTONIX TAB 40 MG PO SCH (09:38)
[2022-03-11 10:36] VITALS: BP 161/77
[2022-03-11] MEDS: INVanz INJ 1 GRAM VIAL 1 G in NS 100 ML IV 100 ML IV SCH (10:42)
== END 2022-03-11 11:05 | disposition home health service (06) ==
LOC: MED/SURG 09:20 → ER 09:20 → MED/SURG 15:03
PROVIDERS: ADMIT Family Medicine; ATTEND Family Medicine
DX: R29.6 Repeated falls; B96.29 Other Escherichia coli [E. coli] as the cause of diseases classified elsewhere; F41.8 Other specified anxiety disorders; I10 Essential (primary) hypertension; F32.A Depression, unspecified; B95.2 Enterococcus as the cause of diseases classified elsewhere; E78.2 Mixed hyperlipidemia; N30.00 Acute cystitis without hematuria; I48.91 Unspecified atrial fibrillation; M54.50 Low back pain, unspecified; Z87.440 Personal history of urinary (tract) infections; R53.1 Weakness; F03.90 Unspecified dementia, unspecified severity, without behavioral disturbance, psychotic disturbance, mood disturbance, and anxiety; K21.9 Gastro-esophageal reflux disease without esophagitis; L50.8 Other urticaria